=== PATIENT | female | born 2000 | race American Indian/Alaskan Native ===

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

== ENCOUNTER 2019-05-28 15:14 | Observation (INO) | payer MEDICAID ==
[2019-05-28] MEDS ORDERED: NIFEdipine 10 MG Cap PO ONE (15:44)
[2019-05-28] MEDS ORDERED: Lactated Ringers 1,000 ML IV ONE (15:55)
[2019-05-28] MEDS ORDERED: Acetaminophen 500 MG Tab PO ONE (16:11)
[2019-05-28] MEDS ORDERED: Lactated Ringers 1,000 ML IV SCH (16:45)
[2019-05-28] MEDS: Lactated Ringers 1,000 ML IV SCH ×2 (16:45→22:24)
[2019-05-28] MEDS ORDERED: Betamethasone Acetate/Betamethasone Sod Phosphate 30 MG/5 ML MDV IM ONE (16:46)
[2019-05-28] MEDS ORDERED: Ondansetron 4 MG/2 ML SDV IVPUSH PRN (16:46)
[2019-05-28 16:53] LABS: ANION GAP 15.3; CHLORIDE,CL 103 mmol/L (101-111); SODIUM,NA 135 mmol/L (135-145)
[2019-05-28] MEDS: guaiFENesin 600 MG Tab.ER PO SCH ×2 (18:28→20:52)
[2019-05-28] MEDS: NIFEdipine 10 MG Cap PO PRN ×4 (18:31→19:47)
[2019-05-28] MEDS: cefTRIAXone 2 GM in Sodium Chloride 0.9% 100 ML IV SCH (18:35)
[2019-05-28] MEDS: Azithromycin 500 MG in Sodium Chloride 0.9% 250 ML IV SCH (19:08)
[2019-05-28] MEDS: NIFEdipine 10 MG Cap PO SCH ×2 (20:54→23:54)
[2019-05-28] MEDS ORDERED: Ketorolac 30 MG/ML SDV IVPUSH ONE (21:25)
[2019-05-28] MEDS: Acetaminophen 325 MG Tab PO PRN (21:33)
[2019-05-28] MEDS: Cyclobenzaprine 10 MG Tab PO PRN (21:59)
[2019-05-28] MEDS ORDERED: Sodium Bicarbonate 50 MEQ in Dextrose 5% in Water 1,000 ML IV ONE ×2 (22:37)
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
[2019-05-28] MEDS ORDERED: Sodium Bicarbonate 8.4% 50 MEQ/50 ML SDV ONE (23:14)
--- NOTE | 2019-05-28 23:41 | PN ---
DATE: 05/28/2019 Laboratory called with increased lactic acid of 3.6 drawn at 10 p.m. The original lactic acid was 2.4 drawn around 6 p.m. At the time of patient's admission, her signs and symptoms were clinically consistent with what I felt was going to be influenza, therefore, she was not started on antibiotics right away, and once we received the lab reports back and the negative influenza swabs, I then decided that this was more of a community- acquired pneumonia, initiated Rocephin and Zithromax. The completion of both antibiotics being infused was not done until around 8 p.m. I am suspecting the increase in lactic acid is because the antibiotics have not had a sufficient amount of time to actually become effective. I did call and discuss the case with the hospitalist very briefly and reviewed that the patient does have a CO2 of only 20, and he recommended going ahead and giving her a dose of sodium bicarbonate at 3 amps in 1 L of D5W. Bicarb should also help the lactic acid and the longer time of the antibiotics having been infused. We will recheck a lactic acid in a few hours and recheck all of her other CBC and chemistries in the morning. [facility] /[id number] ALICIA
[2019-05-29] MEDS: NIFEdipine 10 MG Cap PO SCH ×2 (04:03→07:53)
[2019-05-29 07:09] LABS: ANION GAP 12.4; CHLORIDE,CL 103 mmol/L (101-111); SODIUM,NA 133 mmol/L (135-145)
[2019-05-29] MEDS: Acetaminophen 325 MG Tab PO PRN ×2 (07:53→21:53)
[2019-05-29] MEDS: Potassium Chloride 10 MEQ Tab.ER PO SCH ×2 (09:12→17:54)
[2019-05-29] MEDS: guaiFENesin 600 MG Tab.ER PO SCH ×3 (09:12→21:53)
[2019-05-29] MEDS: Lactated Ringers 1,000 ML IV SCH (09:13)
[2019-05-29] MEDS ORDERED: Albuterol/Ipratropium 3.0-0.5 MG/3 ML Neb Soln NEB PRN (09:24)
[2019-05-29] MEDS: Cyclobenzaprine 10 MG Tab PO PRN ×2 (09:55→21:53)
[2019-05-29] MEDS ORDERED: NIFEdipine 10 MG Cap PO SCH ×2 (12:00→16:00)
[2019-05-29] MEDS: Ferrous Sulfate 325 MG Tab PO SCH ×2 (12:09→17:54)
[2019-05-29] MEDS ORDERED: Lactated Ringers 1,000 ML IV SCH (12:15)
--- NOTE | 2019-05-29 12:51 | PN ---
DATE: 05/29/2019 SUBJECTIVE: Hospital day #2. The patient reports that she is starting to feel a little bit better. Continues to have difficulties with chest pain any time she takes a deep breath. She has been able to lie more flat with greater ease and reports that her nausea is better and she is able to tolerate a regular diet. Experiancing some lightheadedness and a little shortness of breath when she gets up to the bathroom. Uncertain how much of this is related to her pneumonia versus the low blood pressures caused by the nifedipine. contractions have stopped and she has not had any increased pelvic pressure. There is no vaginal bleeding or leakage of fluid. Continues to deny any symptoms of urinary tract infection. Mood has been stable and she continues to have fever with chills and rigors. Primary concern is the well- being of the baby at this time. The patient has been offered [facility] consultation, but feels that she is managing with what she is getting from [facility] at this time and her boyfriend has been here with her overnight for moral support as well and his questions have been addressed. PHYSICAL EXAMINATION: Vital Signs: Temperature is 97.9, pulse of 95, blood pressure 93/40, respiratory rate of 22, O2 saturations 97% on 2 L of oxygen. Prior to this, she was satting at 94% to 93% on room air. Heart: Regular without murmur. Lungs: She continues to have some diminished breath sounds. I am appreciating some wheezing when she is coughing, but not when she is breathing at rest. Continues to express painful behavior when taking a deep breath for examination. Abdomen: Soft and nontender. Positive bowel sounds. heart tones are tracing at 120 beats per minute with moderate qqqy-kv-iasn variability. [place] is not showing any contractions at this time. Extremities: No edema, erythema, tenderness or pain is noted. LABORATORY DATA: Initial lactic acid of 2.4, had gone up to 3.6 and stabilized there. This morning, it is down to 1.9. White blood cell count is stable at 28.5, continues to be at left shift. Her hemoglobin is down to 9.4. Expect most of this is dilutional because of IV fluid that she has been getting overnight. Chemistry panel: Sodium is 133, potassium 3.4, calcium 7.5. ALT down to 65, AST normal at 31, total protein 5.4, and albumin of 2.4, otherwise either within normal limits or unremarkable changes since yesterday. ASSESSMENT: 1. Right upper lobe pneumonia. 2. 30 and 0/7 weeks intrauterine based on 27 weeks ultrasound. 3. 3, para 2-0-0-2. 4. contractions, currently well controlled with nifedipine. 5. Urinary tract infection. 6. Homelessness. 7. Anemia of . 8. Hypokalemia. 9. Hypoalbuminemia due to protein malnutrition. 10.History of delivery of macrosomic female infant. 11.History of anxiety, depression. 12.Bacterial vaginosis. PLAN: At this time, try decreasing the nifedipine to every 8 hours and watch carefully for recurrence of contractions and increase or change therapy as necessary. Continue with IV Rocephin and Zithromax for management of her pneumonia. Recheck a CMP and CBC in the morning. Discontinue any rechecks of lactic acid since that is trending well. Oxygen supplementation is being provided as needed. We will also start some DuoNebs every 6 hours. Continue with Tylenol for fever control. Continue with Flexeril as needed for the back pain and the guaifenesin for cough. Obstetrics Nurse will discuss with her today whether she wants additional group social worker intervention at this time and due to the fact that she is already on 2 IV antibiotics, we will use a metronidazole gel for treatment of her bacterial vaginosis. Did let the patient know that she should also have her Tdap vaccination prior to discharge from the hospital. Her questions were answered and she was comfortable with the plan and she is aware that she is likely to stay in the hospital for an additional 2 to 3 days pending her clinical course. [facility] /[id number] ALICIA
[2019-05-29] MEDS: cefTRIAXone 2 GM in Sodium Chloride 0.9% 100 ML IV SCH (17:54)
[2019-05-29] MEDS: Azithromycin 500 MG in Sodium Chloride 0.9% 250 ML IV SCH (18:28)
[2019-05-29] MEDS ORDERED: Betamethasone Acetate/Betamethasone Sod Phosphate 30 MG/5 ML MDV IM ONE (18:30)
[2019-05-30 03:03] VITALS: BP 90/39; PULSE 103
[2019-05-30] MEDS ORDERED: Prenatal Multivitamin with Calcium/Folic Acid/Iron Tab PO SCH (08:00)
--- NOTE | 2019-05-30 11:16 | OBOUT ---
DATE: 05/28/2019 TIME: Approximately 1900 hours. INDICATION FOR NST: The patient admitted for pneumonia, complicated by contractions. REPORT: Baseline heart rate 150 beats per minute. Moderate znwf-eb-mejy variability. [place] shows contractions every 3 minutes. INTERPRETATION: Category 1, reassuring and reactive NST. [facility] /[id number]
--- NOTE | 2019-05-30 11:46 | OBOUT ---
DATE: 05/29/2019 TIME: Approximately 1430. INDICATION FOR NST: The patient admitted with pneumonia, complicated by contractions. REPORT: Baseline heart rate 130 beats per minute at baseline. Moderate eidz-wa-hdco variability and accelerations noted. [place] shows no contractions. INTERPRETATION: Category 1, reassuring and reactive NST. [facility] /[id number]
--- NOTE | 2019-05-30 11:49 | OBOUT ---
DATE: 05/28/2019 TIME: Approximately 3:30 in the afternoon. INDICATION FOR NST: labor contractions in a patient with a complicated pneumonia. REPORT: Baseline heart rate 150 beats per minute. Moderate awgb-ec-npbn variability. Accelerations noted. [place] shows contractions every 2 to 4 minutes. INTERPRETATION: Category 1, reassuring and reactive NST. [facility] /[id number]
--- NOTE | 2019-05-30 12:02 | OBOUT ---
DATE: 05/29/2019 TIME: Approximately 4 a.m. INDICATION FOR NST: The patient admitted with pneumonia, complicated by contractions. REPORT: Baseline heart rate 120 beats per minute at baseline. Moderate beat to beat variability. Accelerations noted. [place] shows no contractions. INTERPRETATION: Category 1, reassuring and reactive NST. [facility] /[id number] MTDD
--- NOTE | 2019-05-30 13:18 | OBOUT ---
DATE: 05/28/2019 TIME: Approximately 2300 hours. INDICATION FOR NST: The patient admitted with a pneumonia, complicated by contractions. REPORT: Baseline heart rate 140 beats per minute baseline. moderate beat to beat variability. Accelerations noted. [place] shows no contractions. INTERPRETATION: Category 1, reassuring and reactive NST. [facility] /[id number] MTDD
--- NOTE | 2019-05-30 13:21 | OBOUT ---
DATE: 05/29/2019 TIME: Approximately 1730. INDICATION FOR NST: The patient admitted with pneumonia, complicated by contractions. REPORT: Baseline heart rate 135 beats per minute. Moderate hivi-tv-ptar variability. Accelerations noted. [place] shows no contractions. INTERPRETATION: Category 1, reassuring and reactive NST. [facility] /[id number]
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
--- NOTE | 2019-05-30 14:57 | OBOUT ---
DATE: 05/28/2019 TIME: Approximately 1700 hours. INDICATION FOR NST: The patient admitted for pneumonia and has concurrent contractions. REPORT: Baseline heart rate 150 beats per minute. Moderate oyek-nj-kgtl variability. Accelerations noted. [place] shows contractions every 2 to 3 minutes. INTERPRETATION: Category 1 reassuring and reactive NST. [facility] /[id number]
== END 2019-05-30 01:20 | disposition left against medical advice (07) ==
LOC: DL.OBCHECK 15:14 → DL.MS 16:46 → UNDOADMOB 16:58 → DL.MS 16:58
PROVIDERS: ADMIT Family Medicine; ATTEND Family Medicine
DX: O99.513 Diseases of the respiratory system complicating pregnancy, third trimester (principal); J18.1 Lobar pneumonia, unspecified organism; O47.03 False labor before 37 completed weeks of gestation, third trimester; O23.593 Infection of other part of genital tract in pregnancy, third trimester; N76.0 Acute vaginitis; B96.89 Other specified bacterial agents as the cause of diseases classified elsewhere; O23.43 Unspecified infection of urinary tract in pregnancy, third trimester; O99.013 Anemia complicating pregnancy, third trimester; D64.9 Anemia, unspecified; O99.830 Other infection carrier state complicating pregnancy; B18.2 Chronic viral hepatitis C; O99.343 Other mental disorders complicating pregnancy, third trimester; F32.9 Major depressive disorder, single episode, unspecified; F41.9 Anxiety disorder, unspecified; O99.283 Endocrine, nutritional and metabolic diseases complicating pregnancy, third trimester; E87.6 Hypokalemia; O25.13 Malnutrition in pregnancy, third trimester; Z59.0 Homelessness; Z3A.29 29 weeks gestation of pregnancy; Z86.19 Personal history of other infectious and parasitic diseases; Z87.59 Personal history of other complications of pregnancy, childbirth and the puerperium; Z79.899 Other long term (current) drug therapy
CPT/HCPCS: 36415; 71045; 76817; 80053; 80305-QW; 81001; 82731; 83605; 83690; 84443; 85025; 87040; 87081; 87210; 87804; 93005; 94640; 96361; 96365; 96366; 96367; 96372; 96375; 96376; A9270-GY; G0378; J0456; J0696; J0702; J1885; J7050; J7060; J7120; J7620-GY

== ENCOUNTER 2019-07-14 20:56 | Inpatient (IN) | payer MEDICAID ==
[2019-07-14] MEDS ORDERED: Penicillin G Potassium 5,000,000 Unit Vial ONE (21:07)
[2019-07-14] MEDS ORDERED: Penicillin G Potassium 5 MILLUNITS in Sodium Chloride 0.9% 100 ML IV ONE (21:16)
[2019-07-14] MEDS: Lactated Ringers 1,000 ML IV SCH (21:42)
[2019-07-14] MEDS ORDERED: Betamethasone Acetate/Betamethasone Sod Phosphate 30 MG/5 ML MDV IM ONE (22:28)
[2019-07-14 22:53] LABS: ANION GAP 11.6; CHLORIDE,CL 106 mmol/L (101-111); SODIUM,NA 133 mmol/L (135-145)
[2019-07-14] MEDS ORDERED: Acetaminophen 325 MG Tab PO PRN (22:57)
[2019-07-14] MEDS ORDERED: Penicillin G Potassium 3 MILLUNITS in Sodium Chloride 0.9% 100 ML IV SCH (23:00)
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
[2019-07-15] MEDS: Penicillin G Potassium 3 MILLUNITS in Sodium Chloride 0.9% 100 ML IV SCH ×6 (00:59→23:11)
[2019-07-15] MEDS: Ferrous Sulfate 325 MG Tab PO SCH (09:05)
[2019-07-15] MEDS: Prenatal Multivitamin with Calcium/Folic Acid/Iron Tab PO SCH (09:13)
[2019-07-15] MEDS: Lactated Ringers 1,000 ML IV SCH ×2 (09:40→15:45)
--- NOTE | 2019-07-15 11:23 | PCM.PNLD ---
Labor Progress Note - VS & Meds Vital Signs: Last Vital Signs Temp 97.3 F 07/15/19 09:00 Pulse 56 L 07/15/19 09:00 Resp 14 07/15/19 08:30 BP 124/60 07/15/19 09:00 Pulse Ox Active Medications: Current Medications Acetaminophen (Tylenol) 650 mg PO Q6H PRN PRN Reason: Pain Ferrous Sulfate (Ferrous Sulfate) 325 mg PO WITHBREAKFAST [facility] Last Admin: 07/15/19 09:05 Dose: 325 mg Lactated Ringer's (Ringers, Lactated) 1,000 mls @ 125 mls/hr IV ASDIRECTED [facility] Last Admin: 07/15/19 09:40 Dose: 125 mls/hr Penicillin G Potassium 3 (millunits/ Sodium Chloride) 100 mls @ 200 mls/hr IV Q4H [facility] Last Admin: 07/15/19 09:03 Dose: 200 mls/hr Prenat Multivit/[place]/Iron/Folic Ac ( Plus Iron) 1 each PO BRK [facility] Last Admin: 07/15/19 09:13 Dose: 1 each Discontinued Medications Penicillin G Potassium 5 (millunits/ Sodium Chloride) 100 mls @ 200 mls/hr IV ONETIME ONE Stop: 07/14/19 21:45 Last Admin: 07/14/19 21:42 Dose: 200 mls/hr Penicillin G Potassium 3 (millunits/ Sodium Chloride) 100 mls @ 200 mls/hr IV Q4H [facility] Last Admin: 07/15/19 02:53 Dose: Not Given Penicillin G Potassium (Pfizerpen) Confirm Administered Dose 5 millunits .ROUTE .STK-MED ONE Stop: 07/14/19 21:08 Last Admin: 07/14/19 21:18 Dose: Not Given - Uterine Contractions Uterine Monitoring Mode: External [place] Contraction Frequency (min): 5-9 Contraction Duration (sec): 60-90 Contraction Intensity: Moderate Uterine Resting Tone: Soft - Monitoring Monitor Mode: External Ultrasound Heart Rate (FHR) Variability: Moderate (6-25 bmp) Accelerations: Present, 15x15 Decelerations: None Strip Review: Category I - Vaginal Exam Dilation (cm): 4.5 Effacement (Percent): 80 Station: -2 Cervical Position: Midposition Sterile Vaginal Exam Performed By: Lance Padilla Vaginal Exam Comment: 4-5 cm/80%/-2 Buldging bag of cota low in the vagina. AROM- Clear fluid. - Labor Progress (Free Text) Labor Progress: Patient started picking up on the contractions. Nonausea, vomiting, or diarrhea. No bleeding or leakage of fluids. + pressure. Since she ismaking cervical change and is almost 5 cm, has had 3 doses of Penicillin G IV and previous steroids given Artificial rupture of membranes occurred with clear fluid noted. Discussed case with Dr. Hood and she is aware of patient and imminent delivery status. All questions answered for the patient.
[2019-07-15] MEDS ORDERED: Methylergonovine 0.2 MG/1 ML Amp IM PRN (13:22)
[2019-07-15] MEDS ORDERED: Misoprostol 400 MCG (4 X 100 MCG TAB) RECTAL PRN ×2 (13:23→14:24)
[2019-07-15] MEDS ORDERED: Carboprost Tromethamine 250 MCG/1 ML Amp IM PRN ×2 (13:24→14:24)
[2019-07-15] MEDS ORDERED: Oxytocin/Normal Saline 30 UNIT/500 ML BAG IV SCH (13:30)
[2019-07-15] MEDS ORDERED: Acetaminophen 325 MG Tab PO PRN (14:24)
[2019-07-15] MEDS ORDERED: Simethicone 80 MG Tab.Chew PO PRN (14:24)
[2019-07-15] MEDS ORDERED: Zolpidem 5 MG Tab PO PRN (14:24)
[2019-07-15] MEDS ORDERED: Benzocaine/Menthol 20%-0.5% Spray 56 GM Canister TOP PRN (14:24)
[2019-07-15] MEDS ORDERED: Oxytocin 10 Units/1 ML SDV IM PRN (14:24)
[2019-07-15] MEDS ORDERED: Tranexamic Acid 1,000 MG in Sodium Chloride 0.9% 100 ML IV PRN (14:24)
[2019-07-15] MEDS ORDERED: Sodium Chloride 0.9% 10 ML Syringe FLUSH PRN (14:24)
[2019-07-15] MEDS: Ondansetron 4 MG/2 ML SDV IVPUSH PRN ×2 (15:40→21:40)
--- NOTE | 2019-07-15 15:49 | PCM.PNLD ---
Labor Progress Note - VS & Meds Vital Signs: Last Vital Signs Temp 97.3 F 07/15/19 09:00 Pulse 56 L 07/15/19 09:00 Resp 14 07/15/19 08:30 BP 124/60 07/15/19 09:00 Pulse Ox Active Medications: Current Medications Acetaminophen (Tylenol) 650 mg PO Q6H PRN PRN Reason: mild pain or fever Benzocaine/Menthol (Dermoplast Pain Relief [place]) 0 gm TOP Q4H PRN PRN Reason: Perineal comfort measures Carboprost Tromethamine (Hemabate Ds) 250 mcg IM Q2HR PRN PRN Reason: Bleeding Carboprost Tromethamine (Hemabate Ds) 250 mcg IM ASDIRECTED PRN PRN Reason: Excessive vaginal bleeding Docusate Sodium (Colace) 100 mg PO BID PRN PRN Reason: Constipation Ferrous Sulfate (Ferrous Sulfate) 325 mg PO WITHBREAKFAST [facility] Last Admin: 07/15/19 09:05 Dose: 325 mg Lactated Ringer's (Ringers, Lactated) 1,000 mls @ 125 mls/hr IV ASDIRECTED [facility] Last Admin: 07/15/19 09:40 Dose: 125 mls/hr Penicillin G Potassium 3 (millunits/ Sodium Chloride) 100 mls @ 200 mls/hr IV Q4H [facility] Last Admin: 07/15/19 13:05 Dose: 200 mls/hr Oxytocin/Sodium Chloride (Pitocin In Ns 30 Unit/500 Ml) 30 unit in 500 mls @ 2 mls/hr IV TITRATE [facility]; Protocol Last Admin: 07/15/19 14:50 Dose: 2 munits/min, 2 mls/hr Tranexamic Acid 1,000 mg/ (Sodium Chloride) 110 mls @ 660 mls/hr IV ONETIME PRN PRN Reason: Bleeding Ibuprofen (Motrin) 800 mg PO Q8H PRN PRN Reason: Mild Pain or Fever Methylergonovine Maleate (Methergine) 0.2 mg IM Q4H PRN PRN Reason: Bleeding Misoprostol (Cytotec) 800 mcg RECTAL ONETIME PRN PRN Reason: Bleeding Misoprostol (Cytotec) 800 mcg RECTAL ONETIME PRN PRN Reason: Hemorrhage Ondansetron HCl (Zofran) 4 mg IVPUSH Q4H PRN PRN Reason: Nausea/Vomiting Oxytocin (Pitocin) 10 unit IM ONETIME PRN PRN Reason: Bleeding Prenat Multivit/[place]/Iron/Folic Ac ( Plus Iron) 1 each PO BRK [facility] Last Admin: 07/15/19 09:13 Dose: 1 each Prenat Multivit/[place]/Iron/Folic Ac ( Plus Iron) 1 each PO DAILY [facility] Simethicone (Simethicone) 80 mg PO Q4H PRN PRN Reason: Gas Sodium Chloride (Saline Flush) 10 ml FLUSH ASDIRECTED PRN PRN Reason: Keep Vein Open Zolpidem Tartrate (Ambien) 5 mg PO BEDTIME PRN PRN Reason: Insomnia Discontinued Medications Acetaminophen (Tylenol) 650 mg PO Q6H PRN PRN Reason: Pain Penicillin G Potassium 5 (millunits/ Sodium Chloride) 100 mls @ 200 mls/hr IV ONETIME ONE Stop: 07/14/19 21:45 Last Admin: 07/14/19 21:42 Dose: 200 mls/hr Penicillin G Potassium 3 (millunits/ Sodium Chloride) 100 mls @ 200 mls/hr IV Q4H [facility] Last Admin: 07/15/19 02:53 Dose: Not Given Penicillin G Potassium (Pfizerpen) Confirm Administered Dose 5 millunits .ROUTE .STK-MED ONE Stop: 07/14/19 21:08 Last Admin: 07/14/19 21:18 Dose: Not Given - Uterine Contractions Uterine Monitoring Mode: External [place] Contraction Frequency (min): 5 Contraction Duration (sec): 60-90 Contraction Intensity: Moderate Uterine Resting Tone: Soft - Monitoring Monitor Mode: External Ultrasound Heart Rate (FHR) Variability: Moderate (6-25 bmp) Accelerations: Present, 15x15 Decelerations: Variable, Intermittent (<50% x 20 min) Strip Review: Category I - Vaginal Exam Dilation (cm): 7.0 Effacement (Percent): 90 Station: 0 Cervical Position: Midposition Sterile Vaginal Exam Performed By: Lance Padilla - Labor Progress (Free Text) Labor Progress: Patient using Nitrous Oxide would like a Intrathecal for pain control. Pitocin at 2 mu/min for augmentation.
[2019-07-15] MEDS ORDERED: Sodium Bicarbonate 4.2% 2.5 MEQ/5 ML SDV ONE (15:51)
[2019-07-15] MEDS ORDERED: fentaNYL 100 MCG/2 ML SDV ONE (15:51)
--- NOTE | 2019-07-15 16:15 | PCM.SN ---
- Free Text/Narrative Note: Intrathecal. Sitting position, sterile prep and drape. 1% lidocaine w bicarb for skinwheal to L2 L3 interspace, introducer, 24 ga pencan x 1. Pos CSF, neg heme, neg parasthesia. 20 mcg pf sufenta, 30 mcg pf fentanyl, 0.4 ml pf ns and 6 mg of 0.75 % pf bupivacaine injected after CSf aspiration. Pt to L lateral position. Procedure time 1550 to 1420
--- NOTE | 2019-07-15 16:37 | PCM.DEL ---
L & D Note - General Info Date of Service: 07/15/19 (36 5/7 weeks gestation) Mother's Due Date: 08/07/19 - Delivery Note Labor: Augmented by Oxytocin Delivery Outcome: Livebirth Delivery Method: Spontaneous Vaginal Delivery-Single Infant Delivery Mode: Spontaneous Presentation: Vertex Nuchal Cord: Present (tight around neck X1), Reduced Anesthesia Type: Intrathecal, Nitrous Oxide Amniotic Fluid Description: Clear Episiotomy Type: None Laceration: None Placenta: Intact, Spontaneous Cord: 3 Vessels Estimated Blood Loss: 300 Resuscitation Needed: No [place]: Stimulated, [place] Used Provider: Lance Padilla Delivery Comments (Free Text/Narrative):: , OA viable female infant over intact perineum Cord 3 vessel tightly around neck X 1 Reduced without difficulty after delivery of infant. Placenta delivered by simple expression intact. Labia, vagina and cervix inspected and intact. Mother and in good condition. Weight: 7 lbs, Length- 18 1/2 inches long, 's- 8 @ 1 minute and 9 @ 5 minutes EBL-300 mL - General Info Date of Service: 07/15/19 (36 5/7 weeks gestation) Functional Status: Reports: Pain Controlled - Review of Systems General: Reports: No Symptoms HEENT: Reports: No Symptoms Pulmonary: Reports: No Symptoms Cardiovascular: Reports: No Symptoms Gastrointestinal: Reports: No Symptoms Genitourinary: Reports: No Symptoms Musculoskeletal: Reports: No Symptoms Skin: Reports: No Symptoms Neurological: Reports: No Symptoms Psychiatric: Reports: No Symptoms - Patient Data Vitals - Most Recent: Last Vital Signs Temp 97.3 F 07/15/19 09:00 Pulse 56 L 07/15/19 09:00 Resp 14 07/15/19 08:30 BP 124/60 07/15/19 09:00 Pulse Ox Weight - Most Recent: 248 lb I&O - Last 24 Hours: Intake & Output 07/15/19 07/15/19 07/15/19 06:59 14:59 22:59 Intake Total 286 1100 Balance 286 1100 Lab Results Last 24 Hours: Laboratory Results - last 24 hr 07/14/19 07/14/19 07/14/19 Range/Units 20:58 20:58 21:08 WBC 8.8 (5.0-10.0) 10^3/uL RBC 3.79 L (4.2-5.4) 10^6/uL Hgb 11.4 L D (12.0-16.0) g/dL Hct 34.0 L (37.0-47.0) % MCV 89.7 (80-100) fL MCH 30.1 (27.0-34.0) pg MCHC 33.5 (33.0-35.0) g/dL Plt Count 206 (150-450) 10^3/uL Sodium 133 L (135-145) mmol/L Potassium 3.6 (3.6-5.0) mmol/L Chloride 106 (101-111) mmol/L Carbon Dioxide 19.0 L (21.0-31.0) mmol/L Anion Gap 11.6 BUN 14 (7-18) mg/dL Creatinine 0.7 (0.6-1.3) mg/dL Est Cr Clr Drug Dosing 132.86 mL/min Estimated GFR (MDRD) > 60 BUN/Creatinine Ratio 20.00 Glucose 79 (74-105) mg/dL Calcium 8.3 L (8.4-10.2) mg/dl Total Bilirubin 0.5 (0.2-1.0) mg/dL AST 19 (10-42) IU/L ALT 21 (10-60) IU/L Alkaline Phosphatase 143 H (42-121) IU/L Total Protein 6.5 L (6.7-8.2) g/dl Albumin 3.0 L (3.2-5.5) g/dl Globulin 3.5 Albumin/Globulin Ratio 0.86 Urine Color (YELLOW) Urine Appearance (CLEAR) Urine pH (5.0-9.0) Ur Specific [place] (1.005-1.030) Urine Protein (NEGATIVE) Urine Glucose (UA) (NEGATIVE) Urine Ketones (NEGATIVE) Urine Occult Blood (NEGATIVE) Urine Nitrite (NEGATIVE) Urine Bilirubin (NEGATIVE) Urine Urobilinogen (0.2-1.0) mg/dL Ur Leukocyte Esterase (NEGATIVE) Urine RBC /HPF Urine WBC (0-5/HPF) /HPF Ur Epithelial Cells (NOT SEEN) /HPF Urine Bacteria (0-FEW/HPF) /HPF Urine Mucus (NOT SEEN) /LPF Membrane Rupture Negative (NEG) Urine Opiates Screen (NEGATIVE) Ur Oxycodone Screen (NEGATIVE) Urine Methadone Screen (NEGATIVE) Ur Barbiturates Screen (NEGATIVE) U Tricyclic Antidepress (NEGATIVE) Ur Phencyclidine Scrn (NEGATIVE) Ur Amphetamine Screen (NEGATIVE) U Methamphetamines Scrn (NEGATIVE) Urine MDMA Screen (NEGATIVE) U Benzodiazepines Scrn (NEGATIVE) Urine Cocaine Screen (NEGATIVE) U Marijuana (THC) Screen (NEGATIVE) 07/14/19 07/14/19 Range/Units 22:41 22:41 WBC (5.0-10.0) 10^3/uL RBC (4.2-5.4) 10^6/uL Hgb (12.0-16.0) g/dL Hct (37.0-47.0) % MCV (80-100) fL MCH (27.0-34.0) pg MCHC (33.0-35.0) g/dL Plt Count (150-450) 10^3/uL Sodium (135-145) mmol/L Potassium (3.6-5.0) mmol/L Chloride (101-111) mmol/L Carbon Dioxide (21.0-31.0) mmol/L Anion Gap BUN (7-18) mg/dL Creatinine (0.6-1.3) mg/dL Est Cr Clr Drug Dosing mL/min Estimated GFR (MDRD) BUN/Creatinine Ratio Glucose (74-105) mg/dL Calcium (8.4-10.2) mg/dl Total Bilirubin (0.2-1.0) mg/dL AST (10-42) IU/L ALT (10-60) IU/L Alkaline Phosphatase (42-121) IU/L Total Protein (6.7-8.2) g/dl Albumin (3.2-5.5) g/dl Globulin Albumin/Globulin Ratio Urine Color Yellow (YELLOW) Urine Appearance Clear (CLEAR) Urine pH 7.0 (5.0-9.0) Ur Specific [place] 1.020 (1.005-1.030) Urine Protein Negative (NEGATIVE) Urine Glucose (UA) Negative (NEGATIVE) Urine Ketones Negative (NEGATIVE) Urine Occult Blood Negative (NEGATIVE) Urine Nitrite Negative (NEGATIVE) Urine Bilirubin Negative (NEGATIVE) Urine Urobilinogen 0.2 (0.2-1.0) mg/dL Ur Leukocyte Esterase Negative (NEGATIVE) Urine RBC 0-5 /HPF Urine WBC 0-5 (0-5/HPF) /HPF Ur Epithelial Cells Few (NOT SEEN) /HPF Urine Bacteria Few (0-FEW/HPF) /HPF Urine Mucus Few H (NOT SEEN) /LPF Membrane Rupture (NEG) Urine Opiates Screen Negative (NEGATIVE) Ur Oxycodone Screen Negative (NEGATIVE) Urine Methadone Screen Negative (NEGATIVE) Ur Barbiturates Screen Negative (NEGATIVE) U Tricyclic Antidepress Negative (NEGATIVE) Ur Phencyclidine Scrn Negative (NEGATIVE) Ur Amphetamine Screen Negative (NEGATIVE) U Methamphetamines Scrn Negative (NEGATIVE) Urine MDMA Screen Negative (NEGATIVE) U Benzodiazepines Scrn Negative (NEGATIVE) Urine Cocaine Screen Negative (NEGATIVE) U Marijuana (THC) Screen Negative (NEGATIVE) Med Orders - Current: Current Medications Acetaminophen (Tylenol) 650 mg PO Q6H PRN PRN Reason: mild pain or fever Benzocaine/Menthol (Dermoplast Pain Relief [place]) 0 gm TOP Q4H PRN PRN Reason: Perineal comfort measures Carboprost Tromethamine (Hemabate Ds) 250 mcg IM Q2HR PRN PRN Reason: Bleeding Carboprost Tromethamine (Hemabate Ds) 250 mcg IM ASDIRECTED PRN PRN Reason: Excessive vaginal bleeding Docusate Sodium (Colace) 100 mg PO BID PRN PRN Reason: Constipation Ferrous Sulfate (Ferrous Sulfate) 325 mg PO WITHBREAKFAST [facility] Last Admin: 07/15/19 09:05 Dose: 325 mg Lactated Ringer's (Ringers, Lactated) 1,000 mls @ 125 mls/hr IV ASDIRECTED [facility] Last Admin: 07/15/19 09:40 Dose: 125 mls/hr Penicillin G Potassium 3 (millunits/ Sodium Chloride) 100 mls @ 200 mls/hr IV Q4H [facility] Last Admin: 07/15/19 13:05 Dose: 200 mls/hr Oxytocin/Sodium Chloride (Pitocin In Ns 30 Unit/500 Ml) 30 unit in 500 mls @ 2 mls/hr IV TITRATE [facility]; Protocol Last Admin: 07/15/19 14:50 Dose: 2 munits/min, 2 mls/hr Tranexamic Acid 1,000 mg/ (Sodium Chloride) 110 mls @ 660 mls/hr IV ONETIME PRN PRN Reason: Bleeding Ibuprofen (Motrin) 800 mg PO Q8H PRN PRN Reason: Mild Pain or Fever Methylergonovine Maleate (Methergine) 0.2 mg IM Q4H PRN PRN Reason: Bleeding Misoprostol (Cytotec) 800 mcg RECTAL ONETIME PRN PRN Reason: Bleeding Misoprostol (Cytotec) 800 mcg RECTAL ONETIME PRN PRN Reason: Hemorrhage Ondansetron HCl (Zofran) 4 mg IVPUSH Q4H PRN PRN Reason: Nausea/Vomiting Oxytocin (Pitocin) 10 unit IM ONETIME PRN PRN Reason: Bleeding Prenat Multivit/[place]/Iron/Folic Ac ( Plus Iron) 1 each PO BRK [facility] Last Admin: 07/15/19 09:13 Dose: 1 each Prenat Multivit/[place]/Iron/Folic Ac ( Plus Iron) 1 each PO DAILY [facility] Simethicone (Simethicone) 80 mg PO Q4H PRN PRN Reason: Gas Sodium Chloride (Saline Flush) 10 ml FLUSH ASDIRECTED PRN PRN Reason: Keep Vein Open Zolpidem Tartrate (Ambien) 5 mg PO BEDTIME PRN PRN Reason: Insomnia Discontinued Medications Acetaminophen (Tylenol) 650 mg PO Q6H PRN PRN Reason: Pain Fentanyl (Sublimaze) Confirm Administered Dose 100 mcg .ROUTE .STK-MED ONE Stop: 07/15/19 15:52 Last Admin: 07/15/19 15:59 Dose: Not Given Penicillin G Potassium 5 (millunits/ Sodium Chloride) 100 mls @ 200 mls/hr IV ONETIME ONE Stop: 07/14/19 21:45 Last Admin: 07/14/19 21:42 Dose: 200 mls/hr Penicillin G Potassium 3 (millunits/ Sodium Chloride) 100 mls @ 200 mls/hr IV Q4H [facility] Last Admin: 07/15/19 02:53 Dose: Not Given Penicillin G Potassium (Pfizerpen) Confirm Administered Dose 5 millunits .ROUTE .STK-MED ONE Stop: 07/14/19 21:08 Last Admin: 07/14/19 21:18 Dose: Not Given Sodium Bicarbonate (Sodium Bicarbonate 4.2%) Confirm Administered Dose 2.5 meq .ROUTE .STK-MED ONE Stop: 07/15/19 15:52 Last Admin: 07/15/19 15:59 Dose: Not Given Sufentanil Citrate (Sufenta) Confirm Administered Dose 50 mcg .ROUTE .STK-MED ONE Stop: 07/15/19 15:52 Last Admin: 07/15/19 16:00 Dose: Not Given - Exam General: Alert, Oriented, Cooperative, No Acute Distress HEENT: Pupils Equal, Pupils Reactive, Mucous Membr. Moist/[place] Neck: Supple Lungs: Clear to Auscultation, Normal Respiratory Effort Cardiovascular: Regular Rate, Regular Rhythm, No Murmurs Extremities: Normal Inspection, Non-Tender, No Pedal Edema Skin: Warm, Dry, Intact Neurological: No New Focal Deficit Psy/Mental Status: Alert, Normal Affect, Normal Mood - Problem List Review Problem List Initiated/Reviewed/Updated: Yes - My Orders Last 24 Hours: My Active Orders 07/14/19 21:08 CULTURE GROUP B STREP [RM] Routine 07/14/19 21:30 Lactated Ringers [Ringers, Lactated] 1,000 ml IV ASDIRECTED 07/14/19 22:18 OB Check [OM.PC] Click To Edit 07/15/19 01:00 Penicillin G Potassium [Pfizerpen] 3 millunits Sodium Chloride 0.9% [Normal Saline] 100 ml IV Q4H 07/15/19 08:00 Ferrous Sulfate 325 mg PO WITHBREAKFAST Vit with Ca/FA/Iron [ Plus Iron] 1 each PO BRK 07/15/19 13:22 Methylergonovine [Methergine] 0.2 mg IM Q4H PRN 07/15/19 13:23 miSOPROStoL [Cytotec] 800 mcg RECTAL ONETIME PRN 07/15/19 13:24 Carboprost Tromethamine [Hemabate DS] 250 mcg IM Q2HR PRN 07/15/19 13:30 Oxytocin/Normal Saline [Pitocin in NS 30 UNIT/500 ML] 30 unit in 500 ml IV TITRATE 07/15/19 14:24 Patient Status [ADT] Routine Notify Provider Vital Signs OB [RC] ASDIRECTED Up ad [place] [RC] ASDIRECTED Acetaminophen [Tylenol] 650 mg PO Q6H PRN Benzocaine/Menthol [Dermoplast Pain Relief [place]] See Dose Instructions TOP Q4H PRN Carboprost Tromethamine [Hemabate DS] 250 mcg IM ASDIRECTED PRN Docusate Sodium [Colace] 100 mg PO BID PRN Ibuprofen [Motrin] 800 mg PO Q8H PRN Oxytocin [Pitocin] 10 unit IM ONETIME PRN Simethicone 80 mg PO Q4H PRN Sodium Chloride 0.9% [Saline Flush] 10 ml FLUSH ASDIRECTED PRN Tranexamic Acid [Cyklokapron] 1,000 mg Sodium Chloride 0.9% [Normal Saline] 100 ml IV ONETIME Zolpidem [Ambien] 5 mg PO BEDTIME PRN miSOPROStoL [Cytotec] 800 mcg RECTAL ONETIME PRN Assess Lochia [WOMSER] Per Unit Routine Assess Uterine Involution [WOMSER] Per Unit Routine Breast Pump [WOMSER] Per Unit Routine Ice Therapy [OM.PC] Per Unit Routine Perineal Care [OM.PC] Per Unit Routine Saline Lock Insert [OM.PC] Urgent Sitz Bath [OM.PC] Per Unit Routine Resuscitation Status Routine 07/15/19 14:26 Vital Signs [RC] 07/15/19 15:34 Ondansetron [Zofran] 4 mg IVPUSH Q4H PRN 07/15/19 15:43 Nitrous Oxide Delivery [RC] ASDIRECTED 07/15/19 Breakfast Regular Diet [DIET] Regular Diet [DIET] 07/15/19 Dinner Regular Diet [DIET] 07/15/19 Lunch Regular Diet [DIET] 07/16/19 05:11 CBC WITH AUTO DIFF [HEME] AM 07/16/19 09:00 Vit with Ca/FA/Iron [ Plus Iron] 1 each PO DAILY
[2019-07-15] MEDS: Ibuprofen 800 MG Tab PO PRN (23:56)
[2019-07-16] MEDS: Penicillin G Potassium 3 MILLUNITS in Sodium Chloride 0.9% 100 ML IV SCH (05:15)
[2019-07-16] MEDS: Ibuprofen 800 MG Tab PO PRN ×2 (08:03→20:27)
[2019-07-16] MEDS: Ferrous Sulfate 325 MG Tab PO SCH (08:05)
[2019-07-16] MEDS: Prenatal Multivitamin with Calcium/Folic Acid/Iron Tab PO SCH ×2 (08:05→10:44)
[2019-07-16] MEDS: Docusate Sodium 100 MG Cap PO PRN ×2 (10:43→20:27)
--- NOTE | 2019-07-16 11:36 | PCM.PNPP ---
- General Info Date of Service: 07/16/19 (PPD # 1 S/P ) Functional Status: Reports: Pain Controlled, Tolerating Diet, Ambulating, Urinating - Review of Systems General: Reports: No Symptoms HEENT: Reports: No Symptoms Pulmonary: Reports: No Symptoms Cardiovascular: Reports: No Symptoms Gastrointestinal: Reports: No Symptoms Genitourinary: Reports: No Symptoms Musculoskeletal: Reports: No Symptoms Skin: Reports: No Symptoms Neurological: Reports: No Symptoms Psychiatric: Reports: No Symptoms - General Info Date of Service: 07/16/19 (PPD # 1 S/P ) - Patient Data Vital Signs - Most Recent: Last Vital Signs Temp 98.1 F 07/16/19 08:00 Pulse 56 L 07/16/19 08:00 Resp 16 07/16/19 08:00 BP 106/61 07/16/19 08:00 Pulse Ox 98 07/16/19 05:00 Weight - Most Recent: 248 lb I&O - Last 24 Hours: Intake & Output 07/15/19 07/16/19 07/16/19 22:59 06:59 14:59 Intake Total 3600 1000 Output Total 900 1000 Balance 2700 0 Lab Results - Last 24 Hours: Laboratory Results - last 24 hr 07/16/19 Range/Units 06:01 WBC 9.0 (5.0-10.0) 10^3/uL RBC 3.61 L (4.2-5.4) 10^6/uL Hgb 10.9 L (12.0-16.0) g/dL Hct 32.6 L (37.0-47.0) % MCV 90.3 (80-100) fL MCH 30.2 (27.0-34.0) pg MCHC 33.4 (33.0-35.0) g/dL Plt Count 181 (150-450) 10^3/uL Neut % (Auto) 60.9 (42.2-75.2) % Lymph % (Auto) 31.6 (20.5-50.1) % [place] % (Auto) 6.3 (2-8) % Eos % (Auto) 1.0 (1.0-3.0) % Baso % (Auto) 0.2 (0.0-1.0) % Med Orders - Current: Current Medications Acetaminophen (Tylenol) 650 mg PO Q6H PRN PRN Reason: mild pain or fever Benzocaine/Menthol (Dermoplast Pain Relief [place]) 0 gm TOP Q4H PRN PRN Reason: Perineal comfort measures Carboprost Tromethamine (Hemabate Ds) 250 mcg IM Q2HR PRN PRN Reason: Bleeding Carboprost Tromethamine (Hemabate Ds) 250 mcg IM ASDIRECTED PRN PRN Reason: Excessive vaginal bleeding Docusate Sodium (Colace) 100 mg PO BID PRN PRN Reason: Constipation Last Admin: 07/16/19 10:43 Dose: 100 mg Ferrous Sulfate (Ferrous Sulfate) 325 mg PO WITHBREAKFAST [facility] Last Admin: 07/16/19 08:05 Dose: 325 mg Lactated Ringer's (Ringers, Lactated) 1,000 mls @ 125 mls/hr IV ASDIRECTED BRIJESH Last Infusion: 07/15/19 16:30 Dose: 0 mls/hr Oxytocin/Sodium Chloride (Pitocin In Ns 30 Unit/500 Ml) 30 unit in 500 mls @ 2 mls/hr IV TITRATE BRIJESH; Protocol Last Titration: 07/15/19 18:15 Dose: 50 munits/min, 50 mls/hr Tranexamic Acid 1,000 mg/ (Sodium Chloride) 110 mls @ 660 mls/hr IV ONETIME PRN PRN Reason: Bleeding Ibuprofen (Motrin) 800 mg PO Q8H PRN PRN Reason: Mild Pain or Fever Last Admin: 07/16/19 08:03 Dose: 800 mg Methylergonovine Maleate (Methergine) 0.2 mg IM Q4H PRN PRN Reason: Bleeding Misoprostol (Cytotec) 800 mcg RECTAL ONETIME PRN PRN Reason: Bleeding Misoprostol (Cytotec) 800 mcg RECTAL ONETIME PRN PRN Reason: Hemorrhage Ondansetron HCl (Zofran) 4 mg IVPUSH Q4H PRN PRN Reason: Nausea/Vomiting Last Admin: 07/15/19 21:40 Dose: 4 mg Oxytocin (Pitocin) 10 unit IM ONETIME PRN PRN Reason: Bleeding Prenat Multivit/[place]/Iron/Folic Ac ( Plus Iron) 1 each PO BRK [facility] Last Admin: 07/16/19 08:05 Dose: 1 each Prenat Multivit/[place]/Iron/Folic Ac ( Plus Iron) 1 each PO DAILY [facility] Last Admin: 07/16/19 10:44 Dose: Not Given Simethicone (Simethicone) 80 mg PO Q4H PRN PRN Reason: Gas Sodium Chloride (Saline Flush) 10 ml FLUSH ASDIRECTED PRN PRN Reason: Keep Vein Open Zolpidem Tartrate (Ambien) 5 mg PO BEDTIME PRN PRN Reason: Insomnia Discontinued Medications Acetaminophen (Tylenol) 650 mg PO Q6H PRN PRN Reason: Pain Fentanyl (Sublimaze) Confirm Administered Dose 100 mcg .ROUTE .STK-MED ONE Stop: 07/15/19 15:52 Last Admin: 07/15/19 15:59 Dose: Not Given Penicillin G Potassium 5 (millunits/ Sodium Chloride) 100 mls @ 200 mls/hr IV ONETIME ONE Stop: 07/14/19 21:45 Last Admin: 07/14/19 21:42 Dose: 200 mls/hr Penicillin G Potassium 3 (millunits/ Sodium Chloride) 100 mls @ 200 mls/hr IV Q4H [facility] Last Admin: 07/15/19 02:53 Dose: Not Given Penicillin G Potassium 3 (millunits/ Sodium Chloride) 100 mls @ 200 mls/hr IV Q4H [facility] Last Admin: 07/16/19 05:15 Dose: Not Given Penicillin G Potassium (Pfizerpen) Confirm Administered Dose 5 millunits .ROUTE .STK-MED ONE Stop: 07/14/19 21:08 Last Admin: 07/14/19 21:18 Dose: Not Given Sodium Bicarbonate (Sodium Bicarbonate 4.2%) Confirm Administered Dose 2.5 meq .ROUTE .STK-MED ONE Stop: 07/15/19 15:52 Last Admin: 07/15/19 15:59 Dose: Not Given Sufentanil Citrate (Sufenta) Confirm Administered Dose 50 mcg .ROUTE .STK-MED ONE Stop: 07/15/19 15:52 Last Admin: 07/15/19 16:00 Dose: Not Given - Infant Interaction Infant Disposition, : [place] in Room with Family Infant Interaction: Holding Feeding: Bottle Fed Support Person: Significant Other - Recovery Exam Fundal Tone: Firm Fundal Level: 1 Fingerbreadths Below Umbilicus Fundal Placement: Midline Lochia Amount: Small Lochia Color: Rubra/Red Perineum Description: Intact, Minimal Bruising/Swelling Episiotomy/Laceration: None Bladder Status: Nonpalpable Urinary Elimination: Voided - Exam General: Alert, Oriented, Cooperative, No Acute Distress HEENT: Pupils Equal, Pupils Reactive, EOMI, Mucous Membr. Moist/[place] Neck: Supple Lungs: Clear to Auscultation, Normal Respiratory Effort Cardiovascular: Regular Rate, Regular Rhythm, No Murmurs GI/Abdominal Exam: Normal Bowel Sounds, Soft, Non-Tender, No Distention Extremities: Normal Inspection, Normal Range of Motion, Non-Tender, No Pedal Edema Skin: Warm, Intact Neurological: No New Focal Deficit, Normal Gait, Normal Speech Psy/Mental Status: Alert, Normal Affect, Normal Mood - Problem List Review Problem List Initiated/Reviewed/Updated: Yes - My Orders Last 24 Hours: My Active Orders 07/15/19 13:22 Methylergonovine [Methergine] 0.2 mg IM Q4H PRN 07/15/19 13:23 miSOPROStoL [Cytotec] 800 mcg RECTAL ONETIME PRN 07/15/19 13:24 Carboprost Tromethamine [Hemabate DS] 250 mcg IM Q2HR PRN 07/15/19 13:30 Oxytocin/Normal Saline [Pitocin in NS 30 UNIT/500 ML] 30 unit in 500 ml IV TITRATE 07/15/19 14:24 Patient Status [ADT] Routine Notify Provider Vital Signs OB [RC] ASDIRECTED Up ad Angelina [RC] ASDIRECTED Acetaminophen [Tylenol] 650 mg PO Q6H PRN Benzocaine/Menthol [Dermoplast Pain Relief [place]] See Dose Instructions TOP Q4H PRN Carboprost Tromethamine [Hemabate DS] 250 mcg IM ASDIRECTED PRN Docusate Sodium [Colace] 100 mg PO BID PRN Ibuprofen [Motrin] 800 mg PO Q8H PRN Oxytocin [Pitocin] 10 unit IM ONETIME PRN Simethicone 80 mg PO Q4H PRN Sodium Chloride 0.9% [Saline Flush] 10 ml FLUSH ASDIRECTED PRN Tranexamic Acid [Cyklokapron] 1,000 mg Sodium Chloride 0.9% [Normal Saline] 100 ml IV ONETIME Zolpidem [Ambien] 5 mg PO BEDTIME PRN miSOPROStoL [Cytotec] 800 mcg RECTAL ONETIME PRN Assess Lochia [WOMSER] Per Unit Routine Assess Uterine Involution [WOMSER] Per Unit Routine Breast Pump [WOMSER] Per Unit Routine Ice Therapy [OM.PC] Per Unit Routine Perineal Care [OM.PC] Per Unit Routine Saline Lock Insert [OM.PC] Urgent Sitz Bath [OM.PC] Per Unit Routine Resuscitation Status Routine 07/15/19 14:26 Vital Signs [RC] 07/15/19 15:34 Ondansetron [Zofran] 4 mg IVPUSH Q4H PRN 07/15/19 Dinner Regular Diet [DIET] 07/15/19 Lunch Regular Diet [DIET] 07/16/19 09:00 Vit with Ca/FA/Iron [ Plus Iron] 1 each PO DAILY - Assessment Assessment:: 1. PPD # 1 S/P 2. Doing well 3. Tolerating diet 4. Ambulating well. 5. Minimal lochia. - Plan Plan:: 1. Continue present care. 2. Discharge to home tomorrow. 3. PNV and Iron daily.
--- NOTE | 2019-07-17 03:58 | PCM.PNPP ---
- General Info Date of Service: 07/17/19 (PPD# 2 S/P ) Functional Status: Reports: Pain Controlled, Tolerating Diet, Ambulating, Urinating - Review of Systems General: Reports: No Symptoms HEENT: Reports: No Symptoms Pulmonary: Reports: No Symptoms Cardiovascular: Reports: No Symptoms Gastrointestinal: Reports: No Symptoms Genitourinary: Reports: No Symptoms Musculoskeletal: Reports: No Symptoms Skin: Reports: No Symptoms Neurological: Reports: No Symptoms Psychiatric: Reports: No Symptoms - General Info Date of Service: 07/17/19 (PPD # 2 S/P ) - Patient Data Vital Signs - Most Recent: Last Vital Signs Temp 98.7 F 07/16/19 19:19 Pulse 75 07/16/19 19:19 Resp 18 07/16/19 19:19 BP 124/67 07/16/19 19:19 Pulse Ox 99 07/16/19 19:19 Weight - Most Recent: 248 lb Lab Results - Last 24 Hours: Laboratory Results - last 24 hr 07/16/19 Range/Units 06:01 WBC 9.0 (5.0-10.0) 10^3/uL RBC 3.61 L (4.2-5.4) 10^6/uL Hgb 10.9 L (12.0-16.0) g/dL Hct 32.6 L (37.0-47.0) % MCV 90.3 (80-100) fL MCH 30.2 (27.0-34.0) pg MCHC 33.4 (33.0-35.0) g/dL Plt Count 181 (150-450) 10^3/uL Neut % (Auto) 60.9 (42.2-75.2) % Lymph % (Auto) 31.6 (20.5-50.1) % [place] % (Auto) 6.3 (2-8) % Eos % (Auto) 1.0 (1.0-3.0) % Baso % (Auto) 0.2 (0.0-1.0) % Med Orders - Current: Current Medications Acetaminophen (Tylenol) 650 mg PO Q6H PRN PRN Reason: mild pain or fever Benzocaine/Menthol (Dermoplast Pain Relief [place]) 0 gm TOP Q4H PRN PRN Reason: Perineal comfort measures Carboprost Tromethamine (Hemabate Ds) 250 mcg IM Q2HR PRN PRN Reason: Bleeding Carboprost Tromethamine (Hemabate Ds) 250 mcg IM ASDIRECTED PRN PRN Reason: Excessive vaginal bleeding Docusate Sodium (Colace) 100 mg PO BID PRN PRN Reason: Constipation Last Admin: 07/16/19 20:27 Dose: 100 mg Ferrous Sulfate (Ferrous Sulfate) 325 mg PO WITHBREAKFAST [facility] Last Admin: 07/16/19 08:05 Dose: 325 mg Lactated Ringer's (Ringers, Lactated) 1,000 mls @ 125 mls/hr IV ASDIRECTED [facility] Last Infusion: 07/15/19 16:30 Dose: 0 mls/hr Oxytocin/Sodium Chloride (Pitocin In Ns 30 Unit/500 Ml) 30 unit in 500 mls @ 2 mls/hr IV TITRATE [facility]; Protocol Last Titration: 07/15/19 18:15 Dose: 50 munits/min, 50 mls/hr Tranexamic Acid 1,000 mg/ (Sodium Chloride) 110 mls @ 660 mls/hr IV ONETIME PRN PRN Reason: Bleeding Ibuprofen (Motrin) 800 mg PO Q8H PRN PRN Reason: Mild Pain or Fever Last Admin: 07/16/19 20:27 Dose: 800 mg Methylergonovine Maleate (Methergine) 0.2 mg IM Q4H PRN PRN Reason: Bleeding Misoprostol (Cytotec) 800 mcg RECTAL ONETIME PRN PRN Reason: Bleeding Misoprostol (Cytotec) 800 mcg RECTAL ONETIME PRN PRN Reason: Hemorrhage Ondansetron HCl (Zofran) 4 mg IVPUSH Q4H PRN PRN Reason: Nausea/Vomiting Last Admin: 07/15/19 21:40 Dose: 4 mg Oxytocin (Pitocin) 10 unit IM ONETIME PRN PRN Reason: Bleeding Prenat Multivit/[place]/Iron/Folic Ac ( Plus Iron) 1 each PO BRK [facility] Last Admin: 07/16/19 08:05 Dose: 1 each Prenat Multivit/[place]/Iron/Folic Ac ( Plus Iron) 1 each PO DAILY [facility] Last Admin: 07/16/19 10:44 Dose: Not Given Simethicone (Simethicone) 80 mg PO Q4H PRN PRN Reason: Gas Sodium Chloride (Saline Flush) 10 ml FLUSH ASDIRECTED PRN PRN Reason: Keep Vein Open Zolpidem Tartrate (Ambien) 5 mg PO BEDTIME PRN PRN Reason: Insomnia Discontinued Medications Acetaminophen (Tylenol) 650 mg PO Q6H PRN PRN Reason: Pain Fentanyl (Sublimaze) Confirm Administered Dose 100 mcg .ROUTE .STK-MED ONE Stop: 07/15/19 15:52 Last Admin: 07/15/19 15:59 Dose: Not Given Penicillin G Potassium 5 (millunits/ Sodium Chloride) 100 mls @ 200 mls/hr IV ONETIME ONE Stop: 07/14/19 21:45 Last Admin: 07/14/19 21:42 Dose: 200 mls/hr Penicillin G Potassium 3 (millunits/ Sodium Chloride) 100 mls @ 200 mls/hr IV Q4H [facility] Last Admin: 07/15/19 02:53 Dose: Not Given Penicillin G Potassium 3 (millunits/ Sodium Chloride) 100 mls @ 200 mls/hr IV Q4H [facility] Last Admin: 07/16/19 05:15 Dose: Not Given Penicillin G Potassium (Pfizerpen) Confirm Administered Dose 5 millunits .ROUTE .STK-MED ONE Stop: 07/14/19 21:08 Last Admin: 07/14/19 21:18 Dose: Not Given Sodium Bicarbonate (Sodium Bicarbonate 4.2%) Confirm Administered Dose 2.5 meq .ROUTE .STK-MED ONE Stop: 07/15/19 15:52 Last Admin: 07/15/19 15:59 Dose: Not Given Sufentanil Citrate (Sufenta) Confirm Administered Dose 50 mcg .ROUTE .STK-MED ONE Stop: 07/15/19 15:52 Last Admin: 07/15/19 16:00 Dose: Not Given - Interaction Disposition, : [place] in Room with Family Interaction: Holding Infant Infant Feeding: Bottle Fed Infant Support Person: Significant Other - Recovery Exam Fundal Tone: Firm Fundal Level: 1 Fingerbreadths Below Umbilicus Fundal Placement: Midline Lochia Amount: Small Lochia Color: Rubra/Red Perineum Description: Intact, Minimal Bruising/Swelling Episiotomy/Laceration: None Bladder Status: Voiding Urinary Elimination: Voided - Exam General: Alert, Oriented, Cooperative, No Acute Distress HEENT: Pupils Equal, Pupils Reactive, EOMI, Mucous Membr. Moist/[place] Neck: Supple Lungs: Clear to Auscultation, Normal Respiratory Effort Cardiovascular: Regular Rate, Regular Rhythm, No Murmurs GI/Abdominal Exam: Normal Bowel Sounds, Soft, Non-Tender, No Distention Extremities: Normal Inspection, Normal Range of Motion, Non-Tender, No Pedal Edema Skin: Warm, Dry, Intact Neurological: No New Focal Deficit, Normal Gait, Normal Speech, Normal Tone Psy/Mental Status: Alert, Normal Affect, Normal Mood - Problem List Review Problem List Initiated/Reviewed/Updated: Yes - My Orders Last 24 Hours: My Active Orders 07/16/19 09:00 Vit with Ca/FA/Iron [ Plus Iron] 1 each PO DAILY - Assessment Assessment:: 1. PPD # 2 S/P 2. Doing well - Plan Plan:: 1. Discharge to home today. 2. Ibuprofen 800 mg 1 Tab TID po prn pain 3. PNV and Iron daily. 4. Follow-up with Dr. Hood at visit this week.
--- NOTE | 2019-07-17 08:43 | DISCH ---
INDICATION FOR ADMISSION: Ms. Garcia is a 19-year-old, 3, para 2-0-0- 2, female who reported to Labor and delivery at 36 and 4/7 weeks gestation who thought her water had broken, come to find out it had not and she was erin. She was 2 cm on admission and she continued to contract, so we watched her overnight. We did give her penicillin G IV for group B strep prophylaxis since we did not have that back yet. She was noted to make cervical change once she got to 4.5 cm dilated since she had received betamethasone 12 mg IM x2 doses approximately 6 weeks ago and she was over 34 weeks and in active labor, artificial rupture of membranes occurred with clear fluid noted. She tolerated her labor quite well. Once she got to 7 cm dilated, she was very uncomfortable. She was using nitrous oxide to help with discomfort, but that did not help enough, so she did get an intrathecal anesthesia. Once she got the intrathecal anesthesia, she dilated to complete and she started pushing. She then had a normal spontaneous vaginal delivery of a viable female , OA over an intact perineum. The cord was 3 vessel tightly around the neck x1. This was reduced without difficulty. After delivery of the , the placenta was then delivered by simple expression intact. The labia, vagina and cervix were inspected and intact. The baby girl weighed 7 pounds, 18-1/2 inches long with score of 8 at one minute, 9 at five minutes. She had 300 mL blood loss. Mother and infant did quite well. The went to the nursery. The patient recovered without difficulty. She tolerated the rest of her hospital stay quite well. She was afebrile. Vital signs are stable. She tolerated her diet well and ambulated quite well. She had minimal lochia. No complications occurred throughout her hospital stay. She was discharged to home on day #2. LABORATORY AND DIAGNOSTIC STUDIES: 07/14/2019; WBC 8.8, hemoglobin 11.4, hematocrit 34.0, platelet count 206,000. CMP was normal. Urinalysis was normal. Urine toxicology screen was negative. Check for rupture of membranes with AmniSure was negative. 07/16/2019, WBC 9.0, hemoglobin 10.9, hematocrit 32.6, platelet count 181,000. DISCHARGE INSTRUCTIONS: 1. Discharged to home. 2. Follow up with Dr. Askew within the next week for recheck and wellness check. 3. No douching, tampons, intercourse for 6 weeks. 4. Discharge instructions including activity, followup, medications, and diet were discussed with the patient. She understands these and is willing to comply with these. 5. Ibuprofen 800 mg 1 tablet t.i.d. p.r.n. pain. 6. vitamin and iron daily. DISCHARGE DIAGNOSES: 1. A 36 and 5/7 week intrauterine based on a 27-week ultrasound. 2. contractions and labor. 3. Minimal care. 4. Chronic anemia of . 5. Anxiety and depression. 6. Hepatitis C positive. 7. Normal spontaneous vaginal delivery of a viable female weighing 7 pounds, 18-1/2 inches long with score of 8 at one minute, 9 at five minutes. 8. Intrathecal anesthesia. [facility] /[id number]
[2019-07-17] MEDS: Ferrous Sulfate 325 MG Tab PO SCH (08:44)
[2019-07-17] MEDS: Prenatal Multivitamin with Calcium/Folic Acid/Iron Tab PO SCH ×2 (08:44→08:45)
[2019-07-17] MEDS: Ibuprofen 800 MG Tab PO PRN (08:51)
[2019-07-17 09:13] VITALS: BP 120/73; PULSE 67
[2019-07-17] MEDS ORDERED: fentaNYL 100 MCG/2 ML SDV ITHECAL ONE (13:44)
[2019-07-17] MEDS ORDERED: Sodium Bicarbonate 4.2% 2.5 MEQ/5 ML SDV ONE (13:44)
== END 2019-07-17 13:45 | disposition home or self-care (01) | DRG 806 ==
LOC: DL.OBCHECK 20:56 → DL.OB 07-15 12:03 → OBSVTOIN 07-15 16:20
PROVIDERS: ADMIT Family Medicine; ATTEND Family Medicine
PROC: 10E0XZZ Delivery of Products of Conception, External Approach (ICD-10-PCS; principal; 2019-07-15)
PROC: 3E0R3BZ Introduction of Anesthetic Agent into Spinal Canal, Percutaneous Approach (ICD-10-PCS; 2019-07-15)
PROC: 10907ZC Drainage of Amniotic Fluid, Therapeutic from Products of Conception, Via Natural or Artificial Opening (ICD-10-PCS; 2019-07-15)
DX: O69.1XX0 Labor and delivery complicated by cord around neck, with compression, not applicable or unspecified (principal); O98.413 Viral hepatitis complicating pregnancy, third trimester; Z37.0 Single live birth; D64.9 Anemia, unspecified; O99.344 Other mental disorders complicating childbirth; F41.9 Anxiety disorder, unspecified; F32.9 Major depressive disorder, single episode, unspecified; B19.20 Unspecified viral hepatitis C without hepatic coma; O99.334 Smoking (tobacco) complicating childbirth; F17.210 Nicotine dependence, cigarettes, uncomplicated; O99.02 Anemia complicating childbirth; Z3A.36 36 weeks gestation of pregnancy; Z79.899 Other long term (current) drug therapy; Z90.49 Acquired absence of other specified parts of digestive tract
CPT/HCPCS: 36415; 59025; 59409; 80053; 80305-QW; 81001; 84112; 85025; 85027; 87081; A9270-GY; J2405; J2540; J2590; J3010; J7050; J7120

== ENCOUNTER 2020-07-19 11:27 | Inpatient (IN) | payer MEDICAID ==
[2020-07-19] MEDS ORDERED: Methylergonovine 0.2 MG/1 ML Amp IM PRN (12:21)
[2020-07-19] MEDS ORDERED: Lidocaine 1% 30 ML SDV INJECT PRN (12:21)
[2020-07-19] MEDS ORDERED: Sodium Chloride 0.9% 10 ML Syringe FLUSH PRN (12:21)
[2020-07-19] MEDS ORDERED: Butorphanol 2 MG/ML SDV IVPUSH PRN ×2 (12:21)
[2020-07-19] MEDS ORDERED: fentaNYL 100 MCG/2 ML SDV SUBCUT PRN (12:21)
[2020-07-19] MEDS ORDERED: Lactated Ringers 1,000 ML IV ONE (12:21)
[2020-07-19] MEDS ORDERED: Carboprost Tromethamine 250 MCG/1 ML Amp IM PRN (12:21)
[2020-07-19] MEDS ORDERED: Ondansetron 4 MG/2 ML SDV IVPUSH PRN (12:21)
[2020-07-19] MEDS ORDERED: Tranexamic Acid 1,000 MG in Sodium Chloride 0.9% 100 ML IV PRN (12:21)
[2020-07-19] MEDS ORDERED: Misoprostol 400 MCG (4 X 100 MCG TAB) RECTAL PRN (12:21)
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
[2020-07-19] MEDS ORDERED: Nalbuphine 10 MG/1 ML Vial IV PRN (12:24)
[2020-07-19] MEDS ORDERED: Nalbuphine 10 MG/1 ML Vial IM PRN (12:24)
[2020-07-19] MEDS: Lactated Ringers 1,000 ML IV SCH ×3 (12:55→22:30)
[2020-07-19] MEDS: Oxytocin/Normal Saline 30 UNIT/500 ML BAG IV SCH (13:34)
[2020-07-19] MEDS ORDERED: fentaNYL 100 MCG/2 ML SDV ONE (22:21)
[2020-07-19] MEDS ORDERED: EPINEPHrine 1 MG/1 ML Amp ONE (22:22)
[2020-07-19] MEDS ORDERED: Sodium Bicarbonate 4.2% 2.5 MEQ/5 ML SDV ONE (22:22)
--- NOTE | 2020-07-19 22:57 | PCM.SN.2 ---
- Free Text/Narrative Note: Intrathecal. Sitting position, sterile prep and drape. 1% lidocaine w bicarb for skinwheal to L2 L3 interspace x 3. Introducer x 4, POS CSF , neg heme, neg parasthesia. 0.1 ml 1:1000 pf epi, 20 mcg pf sufenta, 30 mcg pf fentanyl. 0.04 ml pf NS and 6 mg of 0.75 % pf marcaine injected after CSF aspiration. Pt to L lateral position. Procedure time 2225 to 2300
[2020-07-20] MEDS ORDERED: Simethicone 80 MG Tab.Chew PO PRN (02:11)
[2020-07-20] MEDS ORDERED: Benzocaine/Menthol 20%-0.5% Spray 56 GM Canister TOP PRN (02:11)
[2020-07-20] MEDS ORDERED: Oxytocin 10 Units/1 ML SDV IM PRN (02:11)
--- NOTE | 2020-07-20 02:14 | PCM.DEL ---
- Patient Data Vitals - Most Recent: Last Vital Signs Temp 37.2 C 07/19/20 23:32 Pulse 67 07/20/20 00:05 Resp 16 07/20/20 00:05 BP 100/45 L 07/20/20 00:05 Pulse Ox 95 07/20/20 00:05 Weight - Most Recent: 102.965 kg Lab Results Last 24 Hours: Laboratory Results - last 24 hr 07/19/20 07/19/20 Range/Units 12:30 12:45 WBC 7.0 (5.0-10.0) 10^3/uL RBC 3.64 L (4.2-5.4) 10^6/uL Hgb 10.0 L (12.0-16.0) g/dL Hct 31.0 L (37.0-47.0) % MCV 85.2 (80-100) fL MCH 27.5 (27.0-34.0) pg MCHC 32.3 L (33.0-35.0) g/dL Plt Count 218 (150-450) 10^3/uL SARS-CoV-2 RNA (VA) Negative (NEGATIVE) Med Orders - Current: Current Medications Acetaminophen (Tylenol) 650 mg PO Q4H PRN PRN Reason: Pain (Mild 1-3) and fever Carboprost Tromethamine (Hemabate Ds) 250 mcg IM ASDIRECTED PRN PRN Reason: HEMORRHAGE Tranexamic Acid 1,000 mg/ (Sodium Chloride) 110 mls @ 660 mls/hr IV ONETIME PRN PRN Reason: Bleeding Oxytocin/Sodium Chloride (Pitocin In Ns 30 Unit/500 Ml) 30 unit in 500 mls @ 2 mls/hr IV TITRATE BRIJESH; Protocol Last Titration: 07/19/20 23:40 Dose: 22 munits/min, 22 mls/hr Documented by: Methylergonovine Maleate (Methergine) 0.2 mg IM ASDIRECTED PRN PRN Reason: Hemorrhage Misoprostol (Cytotec) 800 mcg RECTAL ASDIRECTED PRN PRN Reason: Hemorrhage Nalbuphine HCl (Nubain) 20 mg IM Q3H PRN PRN Reason: Pain Nalbuphine HCl (Nubain) 10 mg IV Q3H PRN PRN Reason: Pain Ondansetron HCl (Zofran) 4 mg IVPUSH Q4H PRN PRN Reason: Nausea/Vomiting Last Admin: 07/19/20 22:25 Dose: 4 mg Documented by: Sodium Chloride (Saline Flush) 10 ml FLUSH ASDIRECTED PRN PRN Reason: Keep Vein Open Discontinued Medications Butorphanol Tartrate (Stadol) 0.5 mg IVPUSH Q3H PRN PRN Reason: Pain Butorphanol Tartrate (Stadol) 1 mg IVPUSH Q3H PRN PRN Reason: Pain Epinephrine HCl (Adrenalin) Confirm Administered Dose 1 mg .ROUTE .STK-MED ONE Stop: 07/19/20 22:23 Fentanyl (Sublimaze) 100 mcg SUBCUT Q1H PRN PRN Reason: Pain (moderate 4-6) Fentanyl (Sublimaze) Confirm Administered Dose 100 mcg .ROUTE .STK-MED ONE Stop: 07/19/20 22:22 Lactated Ringer's (Ringers, Lactated) 1,000 mls @ 999 mls/hr IV BOLUS ONE Stop: 07/19/20 13:21 Lactated Ringer's (Ringers, Lactated) 1,000 mls @ 125 mls/hr IV ASDIRECTED BRIJESH Last Admin: 07/19/20 22:30 Dose: 125 mls/hr Documented by: Lidocaine HCl (Xylocaine-Mpf 1%) 30 ml INJECT ASDIRECTED PRN PRN Reason: Perineal Repair Sodium Bicarbonate (Sodium Bicarbonate 4.2%) Confirm Administered Dose 2.5 meq .ROUTE .STK-MED ONE Stop: 07/19/20 22:23 Sufentanil Citrate (Sufenta) Confirm Administered Dose 50 mcg .ROUTE .STK-MED ONE Stop: 07/19/20 22:23 - My Orders Last 24 Hours: My Active Orders 07/19/20 Lunch Regular Diet [DIET] 07/19/20 12:21 Patient Status [ADT] Routine Notify Provider Vital Signs OB [RC] ASDIRECTED Up ad Angelina [RC] ASDIRECTED Acetaminophen [TylenoL] 650 mg PO Q4H PRN Carboprost Tromethamine [Hemabate DS] 250 mcg IM ASDIRECTED PRN Methylergonovine [Methergine] 0.2 mg IM ASDIRECTED PRN Ondansetron [Zofran] 4 mg IVPUSH Q4H PRN Sodium Chloride 0.9% [Saline Flush] 10 ml FLUSH ASDIRECTED PRN Tranexamic Acid [Cyklokapron] 1,000 mg Sodium Chloride 0.9% [Normal Saline] 100 ml IV ONETIME miSOPROStoL [Cytotec] 800 mcg RECTAL ASDIRECTED PRN Saline Lock Insert [OM.PC] Routine Resuscitation Status Routine 07/19/20 12:24 Nitrous Oxide Delivery [RC] ASDIRECTED OB Discontinue Nitrous Oxide [RC] ASDIRECTED Nalbuphine [Nubain] 10 mg IV Q3H PRN Nalbuphine [Nubain] 20 mg IM Q3H PRN 07/19/20 12:25 Notify Provider [RC] PRN Vaginal Exam [RC] PRN 07/19/20 12:30 Oxytocin/Normal Saline [Pitocin in NS 30 UNIT/500 ML] 30 unit in 500 ml IV TITRATE 07/20/20 02:11 Vital Signs [RC] PFP Consult to Case Management/Special Police [CONS] Routine Benzocaine/Menthol [Dermoplast Pain Relief [place]] See Dose Instructions TOP Q4H PRN Docusate Sodium [Colace] 100 mg PO BID PRN Ibuprofen [Motrin] 800 mg PO Q8H PRN Oxytocin [Pitocin] 10 unit IM ONETIME PRN Simethicone 80 mg PO Q4H PRN Assess Lochia [WOMSER] Per Unit Routine Assess Uterine Involution [WOMSER] Per Unit Routine Breast Pump [WOMSER] Per Unit Routine Ice Therapy [OM.PC] Per Unit Routine Perineal Care [OM.PC] Per Unit Routine Sitz Bath [OM.PC] Per Unit Routine 07/20/20 09:00 Vit with Ca/FA/Iron [ Plus Iron] 1 each PO DAILY 07/21/20 07:00 CBC W/O DIFF,HEMOGRAM [HEME] Routine
[2020-07-20] MEDS: Lactated Ringers 1,000 ML IV SCH (02:25)
[2020-07-20] MEDS: Oxytocin/Normal Saline 30 UNIT/500 ML BAG IV SCH (03:03)
[2020-07-20] MEDS: Ibuprofen 800 MG Tab PO PRN ×3 (03:27→21:31)
[2020-07-20] MEDS: Prenatal Multivitamin with Calcium/Folic Acid/Iron Tab PO SCH (08:49)
[2020-07-20] MEDS: Acetaminophen 325 MG Tab PO PRN ×2 (08:49→19:20)
[2020-07-20] MEDS: Docusate Sodium 100 MG Cap PO PRN (19:20)
[2020-07-20] MEDS ORDERED: oxyCODONE 5 MG Tab PO ONE (22:56)
[2020-07-20] MEDS ORDERED: hydrOXYzine HCl 25 MG Tab PO ONE (22:56)
[2020-07-21] MEDS: Ibuprofen 800 MG Tab PO PRN ×3 (05:22→21:18)
[2020-07-21] MEDS: Acetaminophen 325 MG Tab PO PRN ×4 (07:58→22:19)
[2020-07-21] MEDS: Docusate Sodium 100 MG Cap PO PRN ×2 (07:59→21:17)
[2020-07-21] MEDS: Prenatal Multivitamin with Calcium/Folic Acid/Iron Tab PO SCH (08:00)
--- NOTE | 2020-07-21 08:46 | PCM.PNPP ---
- General Info Date of Service: 07/21/20 Admission Dx/Problem (Free Text): Admission Diagnosis/Problem Admission Diagnosis/Problem Subjective Update: Doing well. Exclusively bottle feeding. Is ambulating to the restroom. Had increased lower abdominal cramping last night which was managed with oxycodone, hydroxyzine, tylenol, and motrin. Current pain rated at 7/10. Left back pain has improved. Promotes intermittent chills. Denies fever, chest pain, dyspnea, vomiting, or nausea. Had a bowel movement last night. Vaginal bleeding is decreasing. Functional Status: Reports: Pain Controlled, Tolerating Diet, Ambulating, Urin ating Pain Score: 7 - Review of Systems General: Reports: Chills HEENT: Reports: No Symptoms Pulmonary: Reports: No Symptoms Cardiovascular: Reports: No Symptoms Gastrointestinal: Reports: Abdominal Pain Genitourinary: Reports: No Symptoms Musculoskeletal: Reports: Back Pain Skin: Reports: No Symptoms Neurological: Reports: No Symptoms Psychiatric: Reports: No Symptoms - General Info Date of Service: 07/21/20 - Patient Data Vital Signs - Most Recent: Last Vital Signs Temp 98.5 F 07/21/20 08:00 Pulse 98 07/21/20 08:00 Resp 16 07/21/20 08:00 BP 120/52 L 07/21/20 08:00 Pulse Ox 99 07/21/20 08:00 Weight - Most Recent: 227 lb Lab Results - Last 24 Hours: Laboratory Results - last 24 hr 07/21/20 Range/Units 05:30 WBC 9.0 (5.0-10.0) 10^3/uL RBC 3.45 L (4.2-5.4) 10^6/uL Hgb 9.5 L (12.0-16.0) g/dL Hct 29.7 L (37.0-47.0) % MCV 86.1 (80-100) fL MCH 27.5 (27.0-34.0) pg MCHC 32.0 L (33.0-35.0) g/dL Plt Count 217 (150-450) 10^3/uL Med Orders - Current: Current Medications Acetaminophen (Tylenol) 650 mg PO Q4H PRN PRN Reason: Pain (Mild 1-3) and fever Last Admin: 07/21/20 07:58 Dose: 650 mg Documented by: Benzocaine/Menthol (Dermoplast Pain Relief [place]) 0 gm TOP Q4H PRN PRN Reason: Perineal comfort measures Carboprost Tromethamine (Hemabate Ds) 250 mcg IM ASDIRECTED PRN PRN Reason: HEMORRHAGE Docusate Sodium (Colace) 100 mg PO BID PRN PRN Reason: Constipation Last Admin: 07/21/20 07:59 Dose: 100 mg Documented by: Tranexamic Acid 1,000 mg/ (Sodium Chloride) 110 mls @ 660 mls/hr IV ONETIME PRN PRN Reason: Bleeding Oxytocin/Sodium Chloride (Pitocin In Ns 30 Unit/500 Ml) 30 unit in 500 mls @ 2 mls/hr IV TITRATE BRIJESH; Protocol Last Titration: 07/20/20 05:00 Dose: 0 munits/min, 0 mls/hr Documented by: Ibuprofen (Motrin) 800 mg PO Q8H PRN PRN Reason: Cramping Last Admin: 07/21/20 05:22 Dose: 800 mg Documented by: Methylergonovine Maleate (Methergine) 0.2 mg IM ASDIRECTED PRN PRN Reason: Hemorrhage Last Admin: 07/20/20 02:08 Dose: 0.2 mg Documented by: Misoprostol (Cytotec) 800 mcg RECTAL ASDIRECTED PRN PRN Reason: Hemorrhage Nalbuphine HCl (Nubain) 20 mg IM Q3H PRN PRN Reason: Pain Nalbuphine HCl (Nubain) 10 mg IV Q3H PRN PRN Reason: Pain Ondansetron HCl (Zofran) 4 mg IVPUSH Q4H PRN PRN Reason: Nausea/Vomiting Last Admin: 07/19/20 22:25 Dose: 4 mg Documented by: Oxytocin (Pitocin) 10 unit IM ONETIME PRN PRN Reason: Bleeding Prenat Multivit/Oracle Technical [employer]/Iron/Folic Ac ( Plus Iron) 1 each PO DAILY BRIJESH Last Admin: 07/21/20 08:00 Dose: 1 each Documented by: Simethicone (Simethicone) 80 mg PO Q4H PRN PRN Reason: Gas Sodium Chloride (Saline Flush) 10 ml FLUSH ASDIRECTED PRN PRN Reason: Keep Vein Open Discontinued Medications Butorphanol Tartrate (Stadol) 0.5 mg IVPUSH Q3H PRN PRN Reason: Pain Butorphanol Tartrate (Stadol) 1 mg IVPUSH Q3H PRN PRN Reason: Pain Epinephrine HCl (Adrenalin) Confirm Administered Dose 1 mg .ROUTE .STK-MED ONE Stop: 07/19/20 22:23 Last Admin: 07/20/20 03:51 Dose: Not Given Documented by: Fentanyl (Sublimaze) 100 mcg SUBCUT Q1H PRN PRN Reason: Pain (moderate 4-6) Fentanyl (Sublimaze) Confirm Administered Dose 100 mcg .ROUTE .STK-MED ONE Stop: 07/19/20 22:22 Last Admin: 07/20/20 03:50 Dose: Not Given Documented by: Hydroxyzine HCl (Atarax) 50 mg PO ONETIME ONE Stop: 07/20/20 22:57 Last Admin: 07/20/20 23:28 Dose: 50 mg Documented by: Lactated Ringer's (Ringers, Lactated) 1,000 mls @ 999 mls/hr IV BOLUS ONE Stop: 07/19/20 13:21 Last Admin: 07/20/20 03:50 Dose: Not Given Documented by: Lactated Ringer's (Ringers, Lactated) 1,000 mls @ 125 mls/hr IV ASDIRECTED BRIJESH Last Admin: 07/20/20 02:25 Dose: 125 mls/hr Documented by: Lidocaine HCl (Xylocaine-Mpf 1%) 30 ml INJECT ASDIRECTED PRN PRN Reason: Perineal Repair Oxycodone HCl (Oxycodone) 5 mg PO ONETIME ONE Stop: 07/20/20 22:57 Last Admin: 07/20/20 23:28 Dose: 5 mg Documented by: Sodium Bicarbonate (Sodium Bicarbonate 4.2%) Confirm Administered Dose 2.5 meq .ROUTE .STK-MED ONE Stop: 07/19/20 22:23 Last Admin: 07/20/20 03:51 Dose: Not Given Documented by: Sufentanil Citrate (Sufenta) Confirm Administered Dose 50 mcg .ROUTE .STK-MED ONE Stop: 07/19/20 22:23 Last Admin: 07/20/20 03:51 Dose: Not Given Documented by: - Infant Interaction Infant Disposition, : to Nursery Infant Feeding: Bottle Fed Infant - Recovery Exam Fundal Tone: Firm Fundal Level: At Umbilicus Fundal Placement: Midline Lochia Amount: Moderate Lochia Color: Rubra/Red Bladder Status: Nonpalpable, Voiding Urinary Elimination: Voided - Exam General: Alert, Oriented HEENT: Pupils Equal, Pupils Reactive, EOMI, Mucous Membr. 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
[2020-07-21] MEDS ORDERED: hydrOXYzine HCl 25 MG Tab PO ONE (22:24)
[2020-07-22] MEDS: Acetaminophen 325 MG Tab PO PRN ×3 (02:25→14:15)
[2020-07-22] MEDS: Ibuprofen 800 MG Tab PO PRN ×2 (05:24→14:14)
--- NOTE | 2020-07-22 07:40 | PCM.PNPP ---
- General Info Date of Service: 07/22/20 Subjective Update: Doing well. Exclusively bottle feeding. Is ambulating to the restroom. Abdominal and back pain is improved. Denies fever, chills, chest pain, dyspnea, vomiting, or nausea. Having bowel movements. Vaginal bleeding is decreasing. Upon discharge plans to return to cousin's house. Functional Status: Reports: Pain Controlled, Tolerating Diet, Ambulating - Review of Systems General: Reports: No Symptoms HEENT: Reports: No Symptoms Pulmonary: Reports: No Symptoms Cardiovascular: Reports: No Symptoms Gastrointestinal: Reports: No Symptoms Genitourinary: Reports: No Symptoms Musculoskeletal: Reports: No Symptoms Skin: Reports: No Symptoms Neurological: Reports: No Symptoms Psychiatric: Reports: No Symptoms - General Info Date of Service: 07/22/20 - Patient Data Vital Signs - Most Recent: Last Vital Signs Temp 97.1 F 07/21/20 19:50 Pulse 83 07/21/20 19:50 Resp 16 07/21/20 19:50 BP 134/61 07/21/20 19:50 Pulse Ox 99 07/21/20 08:00 Weight - Most Recent: 227 lb Med Orders - Current: Current Medications Acetaminophen (Tylenol) 650 mg PO Q4H PRN PRN Reason: Pain (Mild 1-3) and fever Last Admin: 07/22/20 02:25 Dose: 650 mg Documented by: Benzocaine/Menthol (Dermoplast Pain Relief [place]) 0 gm TOP Q4H PRN PRN Reason: Perineal comfort measures Carboprost Tromethamine (Hemabate Ds) 250 mcg IM ASDIRECTED PRN PRN Reason: HEMORRHAGE Docusate Sodium (Colace) 100 mg PO BID PRN PRN Reason: Constipation Last Admin: 07/21/20 21:17 Dose: 100 mg Documented by: Tranexamic Acid 1,000 mg/ (Sodium Chloride) 110 mls @ 660 mls/hr IV ONETIME PRN PRN Reason: Bleeding Oxytocin/Sodium Chloride (Pitocin In Ns 30 Unit/500 Ml) 30 unit in 500 mls @ 2 mls/hr IV TITRATE BRIJESH; Protocol Last Titration: 07/20/20 05:00 Dose: 0 munits/min, 0 mls/hr Documented by: Ibuprofen (Motrin) 800 mg PO Q8H PRN PRN Reason: Cramping Last Admin: 07/22/20 05:24 Dose: 800 mg Documented by: Methylergonovine Maleate (Methergine) 0.2 mg IM ASDIRECTED PRN PRN Reason: Hemorrhage Last Admin: 07/20/20 02:08 Dose: 0.2 mg Documented by: Misoprostol (Cytotec) 800 mcg RECTAL ASDIRECTED PRN PRN Reason: Hemorrhage Nalbuphine HCl (Nubain) 20 mg IM Q3H PRN PRN Reason: Pain Nalbuphine HCl (Nubain) 10 mg IV Q3H PRN PRN Reason: Pain Ondansetron HCl (Zofran) 4 mg IVPUSH Q4H PRN PRN Reason: Nausea/Vomiting Last Admin: 07/19/20 22:25 Dose: 4 mg Documented by: Oxytocin (Pitocin) 10 unit IM ONETIME PRN PRN Reason: Bleeding Prenat Multivit/Administrative Manager/Iron/Folic Ac ( Plus Iron) 1 each PO DAILY BRIJESH Last Admin: 07/21/20 08:00 Dose: 1 each Documented by: Simethicone (Simethicone) 80 mg PO Q4H PRN PRN Reason: Gas Sodium Chloride (Saline Flush) 10 ml FLUSH ASDIRECTED PRN PRN Reason: Keep Vein Open Discontinued Medications Butorphanol Tartrate (Stadol) 0.5 mg IVPUSH Q3H PRN PRN Reason: Pain Butorphanol Tartrate (Stadol) 1 mg IVPUSH Q3H PRN PRN Reason: Pain Epinephrine HCl (Adrenalin) Confirm Administered Dose 1 mg .ROUTE .STK-MED ONE Stop: 07/19/20 22:23 Last Admin: 07/20/20 03:51 Dose: Not Given Documented by: Fentanyl (Sublimaze) 100 mcg SUBCUT Q1H PRN PRN Reason: Pain (moderate 4-6) Fentanyl (Sublimaze) Confirm Administered Dose 100 mcg .ROUTE .STK-MED ONE Stop: 07/19/20 22:22 Last Admin: 07/20/20 03:50 Dose: Not Given Documented by: Hydroxyzine HCl (Atarax) 50 mg PO ONETIME ONE Stop: 07/20/20 22:57 Last Admin: 07/20/20 23:28 Dose: 50 mg Documented by: Hydroxyzine HCl (Atarax) 50 mg PO ONETIME ONE Stop: 07/21/20 22:25 Last Admin: 07/21/20 22:43 Dose: 50 mg Documented by: Lactated Ringer's (Ringers, Lactated) 1,000 mls @ 999 mls/hr IV BOLUS ONE Stop: 07/19/20 13:21 Last Admin: 07/20/20 03:50 Dose: Not Given Documented by: Lactated Ringer's (Ringers, Lactated) 1,000 mls @ 125 mls/hr IV ASDIRECTED BRIJESH Last Admin: 07/20/20 02:25 Dose: 125 mls/hr Documented by: Lidocaine HCl (Xylocaine-Mpf 1%) 30 ml INJECT ASDIRECTED PRN PRN Reason: Perineal Repair Oxycodone HCl (Oxycodone) 5 mg PO ONETIME ONE Stop: 07/20/20 22:57 Last Admin: 07/20/20 23:28 Dose: 5 mg Documented by: Sodium Bicarbonate (Sodium Bicarbonate 4.2%) Confirm Administered Dose 2.5 meq .ROUTE .STK-MED ONE Stop: 07/19/20 22:23 Last Admin: 07/20/20 03:51 Dose: Not Given Documented by: Sufentanil Citrate (Sufenta) Confirm Administered Dose 50 mcg .ROUTE .STK-MED ONE Stop: 07/19/20 22:23 Last Admin: 07/20/20 03:51 Dose: Not Given Documented by: - Infant Interaction Infant Disposition, : [place] to Nursery Feeding: Bottle Fed Infant - Recovery Exam Fundal Tone: Firm Fundal Level: 1 Fingerbreadths Below Umbilicus Fundal Placement: Midline Lochia Amount: Small Lochia Color: Rubra/Red Perineum Description: Intact, Minimal Bruising/Swelling Episiotomy/Laceration: None Bladder Status: Nonpalpable, Voiding Urinary Elimination: Voided - Exam General: Alert, Oriented HEENT: Pupils Equal, Pupils Reactive, EOMI Neck: Supple Lungs: Clear to Auscultation, Normal Respiratory Effort Cardiovascular: Regular Rate, Regular Rhythm GI/Abdominal Exam: Normal Bowel Sounds, Soft, Non-Tender, No Organomegaly Extremities: Normal Inspection, Normal Range of Motion, Non-Tender Skin: Warm, Dry, Intact Neurological: No New Focal Deficit Psy/Mental Status: Alert, Normal Affect, Normal Mood - Problem List Review Problem List Initiated/Reviewed/Updated: Yes - Assessment Assessment:: , delivered at 41w0d by U/S at 39w6d Late care 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
[2020-07-22 09:03] VITALS: BP 109/51; PULSE 85
[2020-07-22] MEDS: Prenatal Multivitamin with Calcium/Folic Acid/Iron Tab PO SCH (10:00)
[2020-07-22] MEDS: Docusate Sodium 100 MG Cap PO PRN (10:00)
--- NOTE | 2020-07-22 15:55 | PCM.DCSUM1 ---
Discharge Summary - Discharge Data Discharge Disposition: Home, Self-Care 01 Condition: Good - Referral to Home Health Primary Care Physician: Alton Bourne MD - Patient Summary/Data Consults: Consultations 07/20/20 02:11 Consult to Case Management/Social Work Job Titles [CONS] Routine - Patient Instructions Diet: Usual Diet as Tolerated Activity: As Tolerated, No Lifting Over 20 Pounds Driving: May Drive Today Showering/Bathing: May Shower Notify Provider of: Fever, Increased Pain, Swelling and Redness - Discharge Plan *PRESCRIPTION DRUG MONITORING PROGRAM REVIEWED*: Not Applicable *COPY OF PRESCRIPTION DRUG MONITORING REPORT IN PATIENT NAVIN: Not Applicable Home Medications: Home Meds Acetaminophen [Tylenol] 650 mg PO Q4H PRN tablet 07/22/20 [Rx] Docusate Sodium [Colace] 100 mg PO BID PRN cap 07/22/20 [Rx] Ibuprofen [Motrin] 800 mg PO Q8H PRN tablet 07/22/20 [Rx] Vit with Ca/FA/Iron [ Plus Iron] 1 each PO DAILY tablet 07/22/20 [Rx] Patient Handouts: Care After Vaginal Delivery - Patient Data Vitals - Most Recent: Last Vital Signs Temp 36.3 C 07/22/20 08:00 Pulse 85 07/22/20 08:00 Resp 16 07/22/20 08:00 BP 109/51 L 07/22/20 08:00 Pulse Ox 99 07/22/20 08:00 Weight - Most Recent: 102.965 kg I&O - Last 24 hours: Intake & Output 07/22/20 07/22/20 07/22/20 06:59 14:59 22:59 Intake Total 960 Balance 960 Med Orders - Current: Current Medications Acetaminophen (Tylenol) 650 mg PO Q4H PRN PRN Reason: Pain (Mild 1-3) and fever Last Admin: 07/22/20 14:15 Dose: 650 mg Documented by: Benzocaine/Menthol (Dermoplast Pain Relief [place]) 0 gm TOP Q4H PRN PRN Reason: Perineal comfort measures Carboprost Tromethamine (Hemabate Ds) 250 mcg IM ASDIRECTED PRN PRN Reason: HEMORRHAGE Docusate Sodium (Colace) 100 mg PO BID PRN PRN Reason: Constipation Last Admin: 07/22/20 10:00 Dose: 100 mg Documented by: Tranexamic Acid 1,000 mg/ (Sodium Chloride) 110 mls @ 660 mls/hr IV ONETIME PRN PRN Reason: Bleeding Oxytocin/Sodium Chloride (Pitocin In Ns 30 Unit/500 Ml) 30 unit in 500 mls @ 2 mls/hr IV TITRATE BRIJESH; Protocol Last Titration: 07/20/20 05:00 Dose: 0 munits/min, 0 mls/hr Documented by: Ibuprofen (Motrin) 800 mg PO Q8H PRN PRN Reason: Cramping Last Admin: 07/22/20 14:14 Dose: 800 mg Documented by: Methylergonovine Maleate (Methergine) 0.2 mg IM ASDIRECTED PRN PRN Reason: Hemorrhage Last Admin: 07/20/20 02:08 Dose: 0.2 mg Documented by: Misoprostol (Cytotec) 800 mcg RECTAL ASDIRECTED PRN PRN Reason: Hemorrhage Nalbuphine HCl (Nubain) 20 mg IM Q3H PRN PRN Reason: Pain Nalbuphine HCl (Nubain) 10 mg IV Q3H PRN PRN Reason: Pain Ondansetron HCl (Zofran) 4 mg IVPUSH Q4H PRN PRN Reason: Nausea/Vomiting Last Admin: 07/19/20 22:25 Dose: 4 mg Documented by: Oxytocin (Pitocin) 10 unit IM ONETIME PRN PRN Reason: Bleeding Prenat Multivit/[place]/Iron/Folic Ac ( Plus Iron) 1 each PO DAILY [facility] Last Admin: 07/22/20 10:00 Dose: 1 each Documented by: Simethicone (Simethicone) 80 mg PO Q4H PRN PRN Reason: Gas Sodium Chloride (Saline Flush) 10 ml FLUSH ASDIRECTED PRN PRN Reason: Keep Vein Open Discontinued Medications Butorphanol Tartrate (Stadol) 0.5 mg IVPUSH Q3H PRN PRN Reason: Pain Butorphanol Tartrate (Stadol) 1 mg IVPUSH Q3H PRN PRN Reason: Pain Epinephrine HCl (Adrenalin) Confirm Administered Dose 1 mg .ROUTE .STK-MED ONE Stop: 07/19/20 22:23 Last Admin: 07/20/20 03:51 Dose: Not Given Documented by: Fentanyl (Sublimaze) 100 mcg SUBCUT Q1H PRN PRN Reason: Pain (moderate 4-6) Fentanyl (Sublimaze) Confirm Administered Dose 100 mcg .ROUTE .STK-MED ONE Stop: 07/19/20 22:22 Last Admin: 07/20/20 03:50 Dose: Not Given Documented by: Hydroxyzine HCl (Atarax) 50 mg PO ONETIME ONE Stop: 07/20/20 22:57 Last Admin: 07/20/20 23:28 Dose: 50 mg Documented by: Hydroxyzine HCl (Atarax) 50 mg PO ONETIME ONE Stop: 07/21/20 22:25 Last Admin: 07/21/20 22:43 Dose: 50 mg Documented by: Lactated Ringer's (Ringers, Lactated) 1,000 mls @ 999 mls/hr IV BOLUS ONE Stop: 07/19/20 13:21 Last Admin: 07/20/20 03:50 Dose: Not Given Documented by: Lactated Ringer's (Ringers, Lactated) 1,000 mls @ 125 mls/hr IV ASDIRECTED BRIJESH Last Admin: 07/20/20 02:25 Dose: 125 mls/hr Documented by: Lidocaine HCl (Xylocaine-Mpf 1%) 30 ml INJECT ASDIRECTED PRN PRN Reason: Perineal Repair Oxycodone HCl (Oxycodone) 5 mg PO ONETIME ONE Stop: 07/20/20 22:57 Last Admin: 07/20/20 23:28 Dose: 5 mg Documented by: Sodium Bicarbonate (Sodium Bicarbonate 4.2%) Confirm Administered Dose 2.5 meq .ROUTE .STK-MED ONE Stop: 07/19/20 22:23 Last Admin: 07/20/20 03:51 Dose: Not Given Documented by: Sufentanil Citrate (Sufenta) Confirm Administered Dose 50 mcg .ROUTE .STK-MED ONE Stop: 07/19/20 22:23 Last Admin: 07/20/20 03:51 Dose: Not Given Documented by:
[2020-07-22] MEDS ORDERED: Sodium Bicarbonate 4.2% 2.5 MEQ/5 ML SDV ONE (16:07)
[2020-07-22] MEDS ORDERED: fentaNYL 100 MCG/2 ML SDV ITHECAL ONE (16:07)
[2020-07-22] MEDS ORDERED: EPINEPHrine 1 MG/1 ML Amp ONE (16:07)
[2020-07-22] MEDS ORDERED: Sodium Chloride 0.9% 20 ML SDV ONE (16:07)
== END 2020-07-22 16:08 | disposition home or self-care (01) | DRG 807 ==
LOC: DL.OBCHECK 11:27 → DL.OB 17:04 → OBSVTOIN 07-20 01:49
PROVIDERS: ADMIT Family Medicine; ATTEND Family Medicine
PROC: 10E0XZZ Delivery of Products of Conception, External Approach (ICD-10-PCS; principal; 2020-07-20)
DX: O48.0 Post-term pregnancy (principal); Z37.0 Single live birth; Z3A.41 41 weeks gestation of pregnancy; O99.02 Anemia complicating childbirth; D64.9 Anemia, unspecified; O99.214 Obesity complicating childbirth; E66.9 Obesity, unspecified; Z79.899 Other long term (current) drug therapy
CPT/HCPCS: 01967; 36415; 51701; 59409; 85027; A9270-GY; J0171; J2210; J2405; J2590; J3010; J7120; U0002

== ENCOUNTER 2021-07-10 00:25 | Observation (INO) | payer MEDICAID ==
[2021-07-10] MEDS ORDERED: Docusate Sodium 100 MG Cap PO PRN (02:29)
[2021-07-10] MEDS ORDERED: Calcium Carbonate 500 MG Tab.Chew PO PRN (02:29)
[2021-07-10] MEDS ORDERED: Zolpidem 5 MG Tab PO PRN (02:42)
[2021-07-10] MEDS: Acetaminophen 325 MG Tab PO PRN ×3 (02:55→23:18)
[2021-07-10] MEDS ORDERED: metroNIDAZOLE 250 MG Tab PO ONE (03:40)
[2021-07-10 03:45] LABS: AMPHETAMINES,URINE POSITIVE (NEGATIVE); BARBITURATES,URINE NEGATIVE (NEGATIVE); BENZODIAZEPINE,URINE NEGATIVE (NEGATIVE); MDMA (ECSTASY), URINE POSITIVE (NEGATIVE); METHADONE,URINE NEGATIVE (NEGATIVE); METHAMPHETAMINES,URINE POSITIVE (NEGATIVE); OPIATES,URINE NEGATIVE (NEGATIVE); OXYCODONE,URINE NEGATIVE (NEGATIVE); PHENCYCLIDINE,URINE NEGATIVE (NEGATIVE); TCA,URINE NEGATIVE (NEGATIVE)
[2021-07-10] MEDS: Piperacillin/Tazobactam 3.375 GM in Sodium Chloride 0.9% 100 ML IV SCH ×4 (03:50→23:12)
[2021-07-10] MEDS ORDERED: Sodium Chloride 0.9% 250 ML ONE (04:08)
[2021-07-10] MEDS ORDERED: Vancomycin 1 GM SDV ONE (04:08)
[2021-07-10] MEDS: diphenhydrAMINE 50 MG/ML SDV IVPUSH PRN ×2 (05:49→16:20)
[2021-07-10] MEDS: Acetaminophen/HYDROcodone 325-5 MG Tab PO PRN ×2 (11:00→16:16)
[2021-07-10] MEDS ORDERED: VANCOMYCIN IV ONE ×3 (18:00)
[2021-07-10] MEDS ORDERED: SODIUM CHLORIDE 0.9% IV ONE ×3 (18:00)
[2021-07-10] MEDS ORDERED: FLUoxetine 10 MG Cap PO SCH (21:00)
[2021-07-10] MEDS: Ferrous Sulfate 325 MG Tab PO SCH (23:12)
[2021-07-10] MEDS: Ascorbic Acid 500 MG Tab PO SCH (23:12)
[2021-07-11] MEDS: Piperacillin/Tazobactam 3.375 GM in Sodium Chloride 0.9% 100 ML IV SCH ×2 (04:34→09:03)
[2021-07-11] MEDS: Acetaminophen/HYDROcodone 325-5 MG Tab PO PRN (04:55)
[2021-07-11] MEDS: diphenhydrAMINE 50 MG/ML SDV IVPUSH PRN (05:55)
[2021-07-11] MEDS ORDERED: VANCOMYCIN IV SCH ×3 (06:00)
[2021-07-11] MEDS ORDERED: SODIUM CHLORIDE 0.9% IV SCH ×3 (06:00)
[2021-07-11] MEDS: Ferrous Sulfate 325 MG Tab PO SCH (08:18)
[2021-07-11] MEDS: Ascorbic Acid 500 MG Tab PO SCH (08:18)
[2021-07-11 10:07] LABS: ANION GAP 13.6 mEq/L (7-13); CHLORIDE,CL 105 mmol/L (98-107); SODIUM,NA 137 mmol/L (136-145)
[2021-07-11] MEDS ORDERED: Lactated Ringers 1,000 ML IV SCH (11:15)
[2021-07-11 11:46] LABS: C.TRACHOMATIS BY TMA Negative (Negative); N.GONORRHOEAE BY TMA Negative (Negative)
[2021-07-11 12:32] VITALS: BP 110/55; PULSE 77
== END 2021-07-11 11:40 ==
LOC: UNDOADMOB 00:25 → UNDOADMIN 00:25 → DL.OB 00:25 → EDSTATUS 00:35 → DL.OB 02:30 → EEVIPCON 02:30 → DL.MS 17:38
PROVIDERS: ADMIT Family Medicine; ATTEND Family Medicine
DX: O99.891 Other specified diseases and conditions complicating pregnancy (principal); O99.713 Diseases of the skin and subcutaneous tissue complicating pregnancy, third trimester; R10.31 Right lower quadrant pain; L03.113 Cellulitis of right upper limb; F32.A Depression, unspecified; Z98.890 Other specified postprocedural states; Z91.02 Food additives allergy status; Z3A.35 35 weeks gestation of pregnancy
CPT/HCPCS: 36415; 59025; 76805; 80048; 80305; 81001; 82565; 82947; 85025; 85027; 86850; 86900; 86901; 87040; 87077; 87081; 87086; 87186; 87210; 87389; 87491; 87522; 87591; 87635; 96365; 96366; 96367; 96375; 96376; A9270; G0378; J1200; J2543; J3370; J7050; J7120; U0002

== ENCOUNTER 2021-08-02 14:59 | Inpatient (IN) | payer MEDICAID ==
[2021-08-02] MEDS: Lactated Ringers 1,000 ML IV SCH ×3 (15:30→18:07)
[2021-08-02] MEDS: Vancomycin 1 GM SDV ONE (15:50)
[2021-08-02] MEDS ORDERED: Ondansetron 4 MG/2 ML SDV IVPUSH PRN (15:52)
[2021-08-02] MEDS ORDERED: fentaNYL 100 MCG/2 ML SDV IVPUSH PRN (15:52)
[2021-08-02] MEDS ORDERED: Methylergonovine 0.2 MG/1 ML Amp IM PRN (15:52)
[2021-08-02] MEDS ORDERED: Misoprostol 400 MCG (4 X 100 MCG TAB) RECTAL PRN (15:52)
[2021-08-02] MEDS ORDERED: Sodium Chloride 0.9% 10 ML Syringe FLUSH PRN (15:52)
[2021-08-02] MEDS ORDERED: Carboprost Tromethamine 250 MCG/1 ML Amp IM PRN (15:52)
[2021-08-02] MEDS ORDERED: Acetaminophen 325 MG Tab PO PRN ×2 (15:52→18:51)
[2021-08-02] MEDS ORDERED: Tranexamic Acid 1,000 MG in Sodium Chloride 0.9% 100 ML IV PRN (15:52)
[2021-08-02] MEDS ORDERED: Lactated Ringers 1,000 ML IV ONE (15:52)
[2021-08-02] MEDS ORDERED: Lidocaine 1% 30 ML SDV INJECT PRN (15:52)
[2021-08-02 16:07] LABS: AMPHETAMINES,URINE POSITIVE (NEGATIVE); BARBITURATES,URINE NEGATIVE (NEGATIVE); BENZODIAZEPINE,URINE NEGATIVE (NEGATIVE); MDMA (ECSTASY), URINE NEGATIVE (NEGATIVE); METHADONE,URINE NEGATIVE (NEGATIVE); METHAMPHETAMINES,URINE POSITIVE (NEGATIVE); OPIATES,URINE NEGATIVE (NEGATIVE); OXYCODONE,URINE NEGATIVE (NEGATIVE); PHENCYCLIDINE,URINE NEGATIVE (NEGATIVE); TCA,URINE NEGATIVE (NEGATIVE)
[2021-08-02] MEDS ORDERED: fentaNYL 100 MCG/2 ML SDV ONE (16:10)
[2021-08-02] MEDS ORDERED: EPINEPHrine 1 MG/ML SDV ONE ×2 (16:11)
[2021-08-02] MEDS ORDERED: Sodium Chloride 0.9% 20 ML SDV IV ONE (16:11)
[2021-08-02] MEDS ORDERED: Sodium Bicarbonate 4.2% 2.5 MEQ/5 ML SDV ONE ×2 (16:11)
[2021-08-02] MEDS ORDERED: fentaNYL 100 MCG/2 ML SDV ITHECAL ONE (16:11)
[2021-08-02] MEDS: Oxytocin/Normal Saline 30 UNIT/500 ML BAG IV SCH ×2 (18:00→20:05)
[2021-08-02] MEDS ORDERED: Oxytocin 10 Units/1 ML SDV IM PRN (18:51)
[2021-08-02] MEDS ORDERED: Simethicone 80 MG Tab.Chew PO PRN (18:51)
[2021-08-02] MEDS ORDERED: Benzocaine/Menthol 20%-0.5% Spray 78 GM Cannister TOP PRN (18:51)
[2021-08-03] MEDS: Ibuprofen 800 MG Tab PO PRN ×3 (00:18→18:18)
[2021-08-03] MEDS: Vancomycin 1 GM SDV ONE (00:36)
[2021-08-03] MEDS: Docusate Sodium 100 MG Cap PO PRN (11:16)
[2021-08-03] MEDS: Prenatal Multivitamin with Calcium/Folic Acid/Iron Tab PO SCH (11:16)
[2021-08-04] MEDS: Ibuprofen 800 MG Tab PO PRN ×2 (01:55→16:06)
[2021-08-04] MEDS: Docusate Sodium 100 MG Cap PO PRN (08:21)
[2021-08-04] MEDS: Prenatal Multivitamin with Calcium/Folic Acid/Iron Tab PO SCH (08:21)
[2021-08-04 08:34] VITALS: BP 115/64; PULSE 75
== END 2021-08-04 19:20 | disposition home or self-care (01) | DRG 807 ==
LOC: DL.OBCHECK 14:59 → DL.OB 15:45
PROVIDERS: ADMIT Family Medicine; ATTEND Family Medicine
PROC: 10E0XZZ Delivery of Products of Conception, External Approach (ICD-10-PCS; principal; 2021-08-02)
PROC: 10907ZC Drainage of Amniotic Fluid, Therapeutic from Products of Conception, Via Natural or Artificial Opening (ICD-10-PCS; 2021-08-02)
PROC: 3E0R3BZ Introduction of Anesthetic Agent into Spinal Canal, Percutaneous Approach (ICD-10-PCS; 2021-08-02)
PROC: 00HU33Z Insertion of Infusion Device into Spinal Canal, Percutaneous Approach (ICD-10-PCS; 2021-08-02)
DX: O99.214 Obesity complicating childbirth (principal); Z37.0 Single live birth; O99.02 Anemia complicating childbirth; D64.9 Anemia, unspecified; O99.334 Smoking (tobacco) complicating childbirth; F17.200 Nicotine dependence, unspecified, uncomplicated; O99.824 Streptococcus B carrier state complicating childbirth; O99.324 Drug use complicating childbirth; F15.90 Other stimulant use, unspecified, uncomplicated; Z3A.38 38 weeks gestation of pregnancy; Z90.49 Acquired absence of other specified parts of digestive tract; Z88.0 Allergy status to penicillin; Z86.16 Personal history of COVID-19
CPT/HCPCS: 01967; 36415; 51701; 59409; 80305-QW; 85027; 86592; A9270-GY; J0171; J2210; J2405; J2590; J3010; J3370; J7050; J7120

== ENCOUNTER 2022-05-24 03:08 | Emergency (ER) | payer MEDICAID ==
[2022-05-24 04:03] VITALS: BP 129/78; PULSE 112
== END 2022-05-24 04:01 | disposition left against medical advice (07) ==
LOC: DL.ED 03:08
DX: F10.120 Alcohol abuse with intoxication, uncomplicated (principal); T76.21XA Adult sexual abuse, suspected, initial encounter; E66.9 Obesity, unspecified; Z68.30 Body mass index [BMI] 30.0-30.9, adult; Z88.0 Allergy status to penicillin
CPT/HCPCS: 99284

== ENCOUNTER 2023-02-27 20:25 | Emergency (ER) | payer MEDICAID | END 2023-02-27 20:27 | disposition left against medical advice (07) | LOC: DL.ED 20:25 | DX: Z53.21 Procedure and treatment not carried out due to patient leaving prior to being seen by health care provider (principal) ==

== ENCOUNTER 2024-05-20 02:47 | Emergency (ER) | payer MEDICAID, OTHER ==
[2024-05-20] MEDS ORDERED: HYDROmorphone 1 MG/ML Syringe ONE ×3 (03:01→03:20)
[2024-05-20] MEDS ORDERED: ceFAZolin 1 GM Vial ONE (03:04)
[2024-05-20] MEDS ORDERED: HYDROmorphone 1 MG/ML Syringe IVPUSH ONE ×3 (03:04→03:22)
[2024-05-20] MEDS ORDERED: HYDROmorphone 2 MG/ML Syringe IV ONE ×3 (03:04→03:22)
[2024-05-20] MEDS ORDERED: Diphtheria,Pertussis(Acell),Tetanus Vaccine 0.5 ML Syringe ONE (03:07)
[2024-05-20] MEDS ORDERED: Lactated Ringers 1,000 ML IV ONE (03:32)
[2024-05-20] MEDS ORDERED: Sodium Chloride 0.9% 10 ML Syringe FLUSH PRN (03:32)
[2024-05-20] MEDS: Iopamidol 612 MG/ML 100 ML Bottle IVPUSH ONE ×2 (03:40→17:44)
[2024-05-20 03:43] LABS: HEMATOCRIT 38.4 % (37.0-47.0); HEMOGLOBIN 12.3 g/dL (12.0-16.0); MEAN CORPUSCULAR HEMOGLOBIN 27.9 pg (27.0-34.0); MEAN CORPUSCULAR VOLUME 87.1 fL (80-100); PLATELET COUNT,PLT 287 10^3/uL (150-450); RED BLOOD CELL COUNT 4.41 10^6/uL (4.2-5.4); WHITE BLOOD CELL COUNT,WBC 24.9 10^3/uL (5.0-10.0)
[2024-05-20 03:46] LABS: BASOPHILS PERCENT AUTO 0.2 % (0.0-1.0); EOSINOPHILS PERCENT AUTO 0.4 % (1.0-3.0); LYMPHOCYTES PERCENT AUTO 19.6 % (20.5-50.1); NEUTROPHILS PERCENT AUTO 76.8 % (42.2-75.2)
[2024-05-20 03:48] LABS: HCG QUALITATIVE,SERUM NEGATIVE (NEGATIVE)
[2024-05-20 03:53] LABS: ALANINE AMINOTRANSFERASE,ALT 67 U/L (14-59); ALBUMIN 3.6 g/dL (3.4-5.0); ALKALINE PHOSPHATASE 105 U/L (46-116); ANION GAP 21.4 mEq/L (7-13); ASPARTATE AMNIOTRANSFERASE,AST 99 U/L (15-37); BILIRUBIN TOTAL 0.3 mg/dL (0.2-1.0); BLOOD UREA NITROGEN,BUN 20 mg/dL (7-18); BUN/CREATININE RATIO 25.6 (No establ ref range); CARBON DIOXIDE,CO2 18 mmol/L (21-32); CHLORIDE,CL 108 mmol/L (98-107); CREATININE 0.78 mg/dL (0.55-1.02); ETHANOL BLOOD MEDICAL 194 mg/dL (0); GLUCOSE RANDOM 152 mg/dL (70-99); POTASSIUM,K 3.4 mmol/L (3.5-5.1); PROTEIN TOTAL,TP 7.3 g/dL (6.4-8.2); SODIUM,NA 144 mmol/L (136-145)
[2024-05-20 04:00] LABS: ESTIMATED GFR 107 mL/min (>=60)
[2024-05-20 04:08] LABS: BAND PERCENT MAN 3 %; LYMPHOCYTES PERCENT MAN 17 % (20-50); MONOCYTES PERCENT MAN 7 % (2-8); SEG NEUTROPHILS PERCENT MAN 73 % (42-75)
[2024-05-20] MEDS ORDERED: fentaNYL 100 MCG/2 ML SDV ONE ×2 (04:15→04:34)
[2024-05-20] MEDS ORDERED: fentaNYL 100 MCG/2 ML SDV IVPUSH ONE ×3 (04:16→04:39)
[2024-05-20] MEDS ORDERED: fentaNYL 100 MCG/2 ML SDV IV ONE ×2 (04:18→04:39)
[2024-05-20] MEDS ORDERED: ceFAZolin 1 GM in Sodium Chloride 0.9% 10 ML IV ONE (04:39)
[2024-05-20] MEDS ORDERED: ceFAZolin 1 GM Vial IVPUSH ONE (06:16)
== END 2024-05-20 09:05 ==
LOC: DL.ED 03:52
DX: S22.22XA Fracture of body of sternum, initial encounter for closed fracture (principal); S22.060A Wedge compression fracture of T7-T8 vertebra, initial encounter for closed fracture; S82.832C Other fracture of upper and lower end of left fibula, initial encounter for open fracture type IIIA, IIIB, or IIIC; S82.831C Other fracture of upper and lower end of right fibula, initial encounter for open fracture type IIIA, IIIB, or IIIC; S71.111A Laceration without foreign body, right thigh, initial encounter; T68.XXXA Hypothermia, initial encounter; S20.411A Abrasion of right back wall of thorax, initial encounter; F10.120 Alcohol abuse with intoxication, uncomplicated; Z90.49 Acquired absence of other specified parts of digestive tract; E66.9 Obesity, unspecified; Z79.899 Other long term (current) drug therapy; Y90.6 Blood alcohol level of 120-199 mg/100 ml
CPT/HCPCS: 29125; 36415; 70450; 71045; 71260; 72125; 73600; 73700; 74177; 80053; 80307; 84703; 85025; 86850; 86900; 86901; 99285; J0690; J1171; J3010; Q9967; 29515; J3490

== ENCOUNTER 2024-09-29 21:12 | Emergency (ER) | payer MEDICAID, OTHER ==
[2024-09-29] MEDS: Ketorolac 30 MG/ML SDV IVPUSH ONE (21:28)
[2024-09-29 21:33] LABS: BASOPHILS PERCENT AUTO 0.7 % (0.0-1.0); EOSINOPHILS PERCENT AUTO 3.8 % (1.0-3.0); HEMATOCRIT 36.8 % (37.0-47.0); LYMPHOCYTES PERCENT AUTO 24.8 % (20.5-50.1); MEAN CORPUSCULAR HEMOGLOBIN 27.1 pg (27.0-34.0); MEAN CORPUSCULAR HGB CONC 32.6 g/dL (33.0-35.0); MEAN CORPUSCULAR VOLUME 83.1 fL (80-100); MONOCYTES PERCENT AUTO 7.7 % (2-8); PLATELET COUNT,PLT 411 10^3/uL (150-450); RED BLOOD CELL COUNT 4.43 10^6/uL (4.2-5.4)
[2024-09-29 22:02] LABS: ALANINE AMINOTRANSFERASE,ALT 22 U/L (14-59); ALBUMIN 3.3 g/dL (3.4-5.0); ALKALINE PHOSPHATASE 188 U/L (46-116); ANION GAP 11.4 mEq/L (7-13); ASPARTATE AMNIOTRANSFERASE,AST 11 U/L (15-37); BILIRUBIN TOTAL 0.3 mg/dL (0.2-1.0); BLOOD UREA NITROGEN,BUN 9 mg/dL (7-18); BUN/CREATININE RATIO 13.8 (No establ ref range); C-REACTIVE PROTEIN 2.01 ng/dL (<=0.50); CALCIUM 8.4 mg/dL (8.5-10.1); CARBON DIOXIDE,CO2 28 mmol/L (21-32); CHLORIDE,CL 105 mmol/L (98-107); CREATININE 0.65 mg/dL (0.55-1.02); EST CRCL DRUG DOSING (CG) 132.31 mL/min; GLUCOSE RANDOM 101 mg/dL (70-99); POTASSIUM,K 3.4 mmol/L (3.5-5.1); PROTEIN TOTAL,TP 7.7 g/dL (6.4-8.2); SODIUM,NA 141 mmol/L (136-145)
[2024-09-29 22:05] LABS: A/G RATIO 0.75; ESTIMATED GFR 124 mL/min (>=60)
[2024-09-29 22:12] LABS: HCG QUALITATIVE,SERUM NEGATIVE (NEGATIVE)
[2024-09-29] MEDS: Take Home: Cephalexin 500 MG Cap, 6 Cap Pack PO ONE (22:58)
[2024-09-29 23:12] LABS: SEDIMENTATION RATE MANUAL 23 mm/hr (0-20)
[2024-09-30 05:59] VITALS: BP 128/62; PULSE 68
== END 2024-09-30 05:56 | disposition home or self-care (01) ==
LOC: DL.ED 21:12
DX: L03.115 Cellulitis of right lower limb (principal); S82.292K Other fracture of shaft of left tibia, subsequent encounter for closed fracture with nonunion; E66.9 Obesity, unspecified; Z88.0 Allergy status to penicillin; Z79.899 Other long term (current) drug therapy; Z90.49 Acquired absence of other specified parts of digestive tract; X58.XXXA Exposure to other specified factors, initial encounter
CPT/HCPCS: 36415; 73610; 80053; 84703; 85025; 85651; 86140; 96374; 99284; A9270; J1885

== ENCOUNTER 2024-10-14 19:55 | Emergency (ER) | payer MEDICAID, OTHER ==
[2024-10-14 20:14] VITALS: BP 127/65
[2024-10-14] MEDS: Acetaminophen/HYDROcodone 325-5 MG Tab PO ONE (20:29)
[2024-10-14 20:41] LABS: BASOPHILS PERCENT AUTO 0.5 % (0.0-1.0); EOSINOPHILS PERCENT AUTO 1.5 % (1.0-3.0); HEMATOCRIT 37.4 % (37.0-47.0); HEMOGLOBIN 12.5 g/dL (12.0-16.0); LYMPHOCYTES PERCENT AUTO 12.3 % (20.5-50.1); MEAN CORPUSCULAR HEMOGLOBIN 28.5 pg (27.0-34.0); MEAN CORPUSCULAR HGB CONC 33.4 g/dL (33.0-35.0); MEAN CORPUSCULAR VOLUME 85.4 fL (80-100); MONOCYTES PERCENT AUTO 6.1 % (2-8); NEUTROPHILS PERCENT AUTO 79.6 % (42.2-75.2); PLATELET COUNT,PLT 537 10^3/uL (150-450); RED BLOOD CELL COUNT 4.38 10^6/uL (4.2-5.4); WHITE BLOOD CELL COUNT,WBC 9.7 10^3/uL (5.0-10.0)
[2024-10-14 20:50] VITALS: PULSE 68
[2024-10-14 21:00] LABS: A/G RATIO 0.7; ALANINE AMINOTRANSFERASE,ALT 19 U/L (14-59); ALBUMIN 3.4 g/dL (3.4-5.0); ALKALINE PHOSPHATASE 177 U/L (46-116); ASPARTATE AMNIOTRANSFERASE,AST 9 U/L (15-37); BILIRUBIN TOTAL 0.3 mg/dL (0.2-1.0); BLOOD UREA NITROGEN,BUN 17 mg/dL (7-18); BUN/CREATININE RATIO 22.1 (No establ ref range); C-REACTIVE PROTEIN 3.39 ng/dL (<=0.50); CALCIUM 9.2 mg/dL (8.5-10.1); CARBON DIOXIDE,CO2 26 mmol/L (21-32); CHLORIDE,CL 104 mmol/L (98-107); CREATININE 0.77 mg/dL (0.55-1.02); GLUCOSE RANDOM 96 mg/dL (70-99); PROTEIN TOTAL,TP 8.4 g/dL (6.4-8.2); SODIUM,NA 138 mmol/L (136-145)
[2024-10-14 21:14] LABS: ESTIMATED GFR 109 mL/min (>=60)
[2024-10-14] MEDS: Ibuprofen 600 MG Tab PO ONE (21:34)
[2024-10-14] MEDS: Clindamycin in 0.9 % Sod Chlor 900 MG in Premix Bag 1 BAG IV ONE (21:34)
[2024-10-14] MEDS: Take Home: Clindamycin HCl 150 MG, 12 Cap Pack PO ONE (21:43)
== END 2024-10-14 22:16 | disposition home or self-care (01) ==
LOC: DL.ED 19:55
DX: L02.415 Cutaneous abscess of right lower limb (principal); E66.9 Obesity, unspecified; Z88.1 Allergy status to other antibiotic agents; Z79.899 Other long term (current) drug therapy; Z90.49 Acquired absence of other specified parts of digestive tract
CPT/HCPCS: 36415; 73610; 80053; 83605; 85025; 85651; 86140; 87040; 87070; 87077; 87186; 87205; 96365; 99284; A9270; J0737; 99283

== ENCOUNTER 2024-11-24 15:14 | Emergency (ER) | payer MEDICAID ==
[2024-11-24] MEDS ORDERED: Sodium Chloride 0.9% 10 ML Syringe FLUSH PRN (15:34)
[2024-11-24] MEDS: Ketorolac 30 MG/ML SDV IVPUSH ONE (15:50)
[2024-11-24 15:56] LABS: BASOPHILS PERCENT AUTO 0.4 % (0.0-1.0); EOSINOPHILS PERCENT AUTO 1.4 % (1.0-3.0); LYMPHOCYTES PERCENT AUTO 20.8 % (20.5-50.1); MEAN CORPUSCULAR HEMOGLOBIN 25.6 pg (27.0-34.0); MEAN CORPUSCULAR HGB CONC 31.4 g/dL (33.0-35.0); MEAN CORPUSCULAR VOLUME 81.6 fL (80-100); MONOCYTES PERCENT AUTO 5.2 % (2-8); NEUTROPHILS PERCENT AUTO 72.2 % (42.2-75.2); PLATELET COUNT,PLT 427 10^3/uL (150-450); RED BLOOD CELL COUNT 4.29 10^6/uL (4.2-5.4); WHITE BLOOD CELL COUNT,WBC 8.4 10^3/uL (5.0-10.0)
[2024-11-24 16:19] LABS: ALANINE AMINOTRANSFERASE,ALT 35 U/L (14-59); ALBUMIN 3.2 g/dL (3.4-5.0); ALKALINE PHOSPHATASE 158 U/L (46-116); ANION GAP 13.1 mEq/L (7-13); ASPARTATE AMNIOTRANSFERASE,AST 13 U/L (15-37); BILIRUBIN TOTAL 0.3 mg/dL (0.2-1.0); BLOOD UREA NITROGEN,BUN 11 mg/dL (7-18); BUN/CREATININE RATIO 16.2 (No establ ref range); C-REACTIVE PROTEIN 1.56 ng/dL (<=0.50); CALCIUM 8.7 mg/dL (8.5-10.1); CARBON DIOXIDE,CO2 27 mmol/L (21-32); CHLORIDE,CL 107 mmol/L (98-107); CREATININE 0.68 mg/dL (0.55-1.02); EST CRCL DRUG DOSING (CG) 126.47 mL/min; GLUCOSE RANDOM 99 mg/dL (70-99); LACTIC ACID 0.9 mmol/L (0.4-2.0); POTASSIUM,K 4.1 mmol/L (3.5-5.1); PROTEIN TOTAL,TP 7.9 g/dL (6.4-8.2); SODIUM,NA 143 mmol/L (136-145)
[2024-11-24 16:22] LABS: A/G RATIO 0.68; ESTIMATED GFR 123 mL/min (>=60)
[2024-11-24 16:35] LABS: INR 0.9 (0.9-1.2); PROTHROMBIN TIME 9.7 SEC (9.0-12.0); PTT,PARTIAL THROMBOPLSTIN TIME 23.4 SEC (22.0-34.0)
[2024-11-24 16:47] LABS: AMPHETAMINES,URINE NEGATIVE (NEGATIVE); BARBITURATES,URINE NEGATIVE (NEGATIVE); BENZODIAZEPINE,URINE NEGATIVE (NEGATIVE); MDMA (ECSTASY), URINE NEGATIVE (NEGATIVE); METHADONE,URINE NEGATIVE (NEGATIVE); METHAMPHETAMINES,URINE NEGATIVE (NEGATIVE); OPIATES,URINE NEGATIVE (NEGATIVE); OXYCODONE,URINE NEGATIVE (NEGATIVE); PHENCYCLIDINE,URINE NEGATIVE (NEGATIVE); TCA,URINE NEGATIVE (NEGATIVE)
[2024-11-24] MEDS: Iopamidol 612 MG/ML 100 ML Bottle IVPUSH ONE (17:02)
[2024-11-24] MEDS ORDERED: Iopamidol 755 Mg/ML 100 ML Bottle IVPUSH ONE (17:10)
[2024-11-24 19:42] VITALS: BP 115/79; PULSE 73
[2024-11-24] MEDS: Sulfamethoxazole/Trimethoprim 800-160 MG Tab PO ONE (19:42)
== END 2024-11-24 19:53 | disposition home or self-care (01) ==
LOC: DL.ED 15:14
DX: S82.83 Other fracture of upper and lower end of fibula (principal); E66.9 Obesity, unspecified; Z88.1 Allergy status to other antibiotic agents; Z90.49 Acquired absence of other specified parts of digestive tract; Z68.36 Body mass index [BMI] 36.0-36.9, adult; X58.XXXA Exposure to other specified factors, initial encounter
CPT/HCPCS: 36415; 71045; 71275; 73700; 80053; 80305; 81025; 83605; 84484; 85025; 85379; 85610; 85730; 86140; 87040; 87070; 87077; 87186; 93010; 96374; 99284; A9270; J1885; Q9967

== ENCOUNTER 2025-02-15 10:08 | Inpatient (IN) | payer MEDICAID ==
[2025-02-15] MEDS ORDERED: Ondansetron 4 MG Tab.DIS PO PRN (16:09)
[2025-02-15 16:55] LABS: BASOPHILS PERCENT AUTO 0.6 % (0.0-1.0); EOSINOPHILS PERCENT AUTO 7.2 % (1.0-3.0); LYMPHOCYTES PERCENT AUTO 27.4 % (20.5-50.1); MONOCYTES PERCENT AUTO 8.2 % (2-8); NEUTROPHILS PERCENT AUTO 56.6 % (42.2-75.2); PLATELET COUNT,PLT 358 10^3/uL (150-450); RED BLOOD CELL COUNT 4.01 10^6/uL (4.2-5.4); WHITE BLOOD CELL COUNT,WBC 6.2 10^3/uL (5.0-10.0)
[2025-02-15 17:15] LABS: INR 0.9 (0.9-1.2); PTT,PARTIAL THROMBOPLSTIN TIME 23.0 SEC (22.0-34.0)
[2025-02-15 17:18] LABS: ALANINE AMINOTRANSFERASE,ALT 21.0 U/L (14-59); ASPARTATE AMNIOTRANSFERASE,AST 13.0 U/L (15-37); BILIRUBIN TOTAL 0.2 mg/dL (0.2-1.0); BLOOD UREA NITROGEN,BUN 16.0 mg/dL (7-18); CARBON DIOXIDE,CO2 27.0 mmol/L (21-32); CHLORIDE,CL 102.0 mmol/L (98-107); CREATININE 0.57 mg/dL (0.55-1.02); EST CRCL DRUG DOSING (CG) 149.55 mL/min; GLUCOSE RANDOM 101.0 mg/dL (70-99); POTASSIUM,K 4.4 mmol/L (3.5-5.1); PROTEIN TOTAL,TP 7.4 g/dL (6.4-8.2); SODIUM,NA 137.0 mmol/L (136-145)
[2025-02-15 17:21] LABS: A/G RATIO 0.72; ESTIMATED GFR 128.0 mL/min (>=60)
[2025-02-15 19:47] LABS: FOLIC ACID 10.0 ng/mL (8.6-58.9)
[2025-02-15 19:52] LABS: IRON,FE 44.0 ug/dL (50-170); PERCENT FE SATURATION 10.7 % (20.0-50.0)
[2025-02-16 08:42] LABS: PLATELET COUNT,PLT 376 10^3/uL (150-450); RED BLOOD CELL COUNT 4.32 10^6/uL (4.2-5.4); WHITE BLOOD CELL COUNT,WBC 5.1 10^3/uL (5.0-10.0)
[2025-02-16 09:16] LABS: EOSINOPHILS PERCENT MAN 6 % (1-3); LYMPHOCYTES PERCENT MAN 31 % (20-50); MONOCYTES PERCENT MAN 8 % (2-8); SEG NEUTROPHILS PERCENT MAN 55 % (42-75)
[2025-02-16] MEDS: Aspirin 325 MG Tab.EC PO SCH (11:00)
[2025-02-16] MEDS: Prenatal Multivitamin with Calcium/Folic Acid/Iron Tab PO SCH (11:00)
[2025-02-16] MEDS: Sennosides/Docusate Sodium 50-8.6 MG Tab PO SCH (22:14)
[2025-02-18 10:08] LABS: AMPHETAMINES,URINE NEGATIVE (NEGATIVE); BARBITURATES,URINE NEGATIVE (NEGATIVE); MDMA (ECSTASY), URINE NEGATIVE (NEGATIVE); METHAMPHETAMINES,URINE NEGATIVE (NEGATIVE); OPIATES,URINE NEGATIVE (NEGATIVE); OXYCODONE,URINE POSITIVE (NEGATIVE); PHENCYCLIDINE,URINE NEGATIVE (NEGATIVE); TCA,URINE POSITIVE (NEGATIVE)
[2025-02-19 06:43] LABS: BASOPHILS PERCENT AUTO 0.4 % (0.0-1.0); EOSINOPHILS PERCENT AUTO 5.4 % (1.0-3.0); LYMPHOCYTES PERCENT AUTO 30.1 % (20.5-50.1); MONOCYTES PERCENT AUTO 8.1 % (2-8); NEUTROPHILS PERCENT AUTO 56.0 % (42.2-75.2); PLATELET COUNT,PLT 337 10^3/uL (150-450); RED BLOOD CELL COUNT 3.91 10^6/uL (4.2-5.4); WHITE BLOOD CELL COUNT,WBC 5.6 10^3/uL (5.0-10.0)
[2025-02-19 07:02] LABS: ALANINE AMINOTRANSFERASE,ALT 20.0 U/L (14-59); ASPARTATE AMNIOTRANSFERASE,AST 12.0 U/L (15-37); BILIRUBIN TOTAL 0.2 mg/dL (0.2-1.0); BLOOD UREA NITROGEN,BUN 13.0 mg/dL (7-18); CARBON DIOXIDE,CO2 29.0 mmol/L (21-32); CHLORIDE,CL 107.0 mmol/L (98-107); CREATININE 0.64 mg/dL (0.55-1.02); EST CRCL DRUG DOSING (CG) 133.19 mL/min; GLUCOSE RANDOM 102.0 mg/dL (70-99); POTASSIUM,K 4.3 mmol/L (3.5-5.1); PROTEIN TOTAL,TP 7.1 g/dL (6.4-8.2); SODIUM,NA 142.0 mmol/L (136-145)
[2025-02-19 07:04] LABS: A/G RATIO 0.78; ESTIMATED GFR 124.0 mL/min (>=60)
[2025-02-20] MEDS: Sodium Chloride 0.9% 10 ML Syringe FLUSH PRN (01:08)
[2025-02-21 06:40] LABS: BASOPHILS PERCENT AUTO 0.8 % (0.0-1.0); EOSINOPHILS PERCENT AUTO 5.1 % (1.0-3.0); LYMPHOCYTES PERCENT AUTO 30.6 % (20.5-50.1); MONOCYTES PERCENT AUTO 8.1 % (2-8); NEUTROPHILS PERCENT AUTO 55.4 % (42.2-75.2); PLATELET COUNT,PLT 317 10^3/uL (150-450); RED BLOOD CELL COUNT 3.88 10^6/uL (4.2-5.4); WHITE BLOOD CELL COUNT,WBC 5.9 10^3/uL (5.0-10.0)
[2025-02-21 07:09] LABS: ALANINE AMINOTRANSFERASE,ALT 16 U/L (14-59); ASPARTATE AMNIOTRANSFERASE,AST 11 U/L (15-37); BILIRUBIN TOTAL 0.1 mg/dL (0.2-1.0); BLOOD UREA NITROGEN,BUN 16 mg/dL (7-18); CARBON DIOXIDE,CO2 26 mmol/L (21-32); CHLORIDE,CL 108 mmol/L (98-107); CREATININE 0.54 mg/dL (0.55-1.02); EST CRCL DRUG DOSING (CG) 157.86 mL/min; GLUCOSE RANDOM 101 mg/dL (70-99); POTASSIUM,K 4.2 mmol/L (3.5-5.1); PROTEIN TOTAL,TP 7.0 g/dL (6.4-8.2); SODIUM,NA 142 mmol/L (136-145)
[2025-02-21 07:12] LABS: A/G RATIO 0.79; ESTIMATED GFR 129 mL/min (>=60)
[2025-02-21 07:21] LABS: SEDIMENTATION RATE MANUAL 20 mm/hr (0-20)
[2025-02-21] MEDS ORDERED: Sodium Chloride 0.9% 10 ML Syringe FLUSH PRN (21:36)
[2025-02-22] MEDS: Sodium Chloride 0.9% 10 ML Syringe FLUSH SCH (09:00)
[2025-02-26 06:39] LABS: BASOPHILS PERCENT AUTO 1.6 % (0.0-1.0); EOSINOPHILS PERCENT AUTO 8.0 % (1.0-3.0); LYMPHOCYTES PERCENT AUTO 36.1 % (20.5-50.1); MONOCYTES PERCENT AUTO 8.0 % (2-8); NEUTROPHILS PERCENT AUTO 46.3 % (42.2-75.2); PLATELET COUNT,PLT 312 10^3/uL (150-450); RED BLOOD CELL COUNT 4.01 10^6/uL (4.2-5.4); WHITE BLOOD CELL COUNT,WBC 5.1 10^3/uL (5.0-10.0)
[2025-02-26 07:10] LABS: ALANINE AMINOTRANSFERASE,ALT 19 U/L (14-59); ASPARTATE AMNIOTRANSFERASE,AST 12 U/L (15-37); BILIRUBIN TOTAL 0.2 mg/dL (0.2-1.0); BLOOD UREA NITROGEN,BUN 17 mg/dL (7-18); CARBON DIOXIDE,CO2 24 mmol/L (21-32); CHLORIDE,CL 106 mmol/L (98-107); CREATININE 0.61 mg/dL (0.55-1.02); EST CRCL DRUG DOSING (CG) 139.74 mL/min; GLUCOSE RANDOM 98 mg/dL (70-99); POTASSIUM,K 4.4 mmol/L (3.5-5.1); PROTEIN TOTAL,TP 6.9 g/dL (6.4-8.2); SODIUM,NA 139 mmol/L (136-145)
[2025-02-26 07:18] LABS: A/G RATIO 0.82; ESTIMATED GFR 126 mL/min (>=60)
[2025-02-26 07:24] LABS: SEDIMENTATION RATE MANUAL 16 mm/hr (0-20)
[2025-02-28 09:15] LABS: BASOPHILS PERCENT AUTO 0.6 % (0.0-1.0); EOSINOPHILS PERCENT AUTO 6.1 % (1.0-3.0); LYMPHOCYTES PERCENT AUTO 32.8 % (20.5-50.1); MONOCYTES PERCENT AUTO 7.7 % (2-8); NEUTROPHILS PERCENT AUTO 52.8 % (42.2-75.2); PLATELET COUNT,PLT 319 10^3/uL (150-450); RED BLOOD CELL COUNT 3.94 10^6/uL (4.2-5.4); WHITE BLOOD CELL COUNT,WBC 5.5 10^3/uL (5.0-10.0)
[2025-02-28 09:32] LABS: ALANINE AMINOTRANSFERASE,ALT 19 U/L (14-59); ASPARTATE AMNIOTRANSFERASE,AST 11 U/L (15-37); BILIRUBIN TOTAL 0.2 mg/dL (0.2-1.0); BLOOD UREA NITROGEN,BUN 19 mg/dL (7-18); CARBON DIOXIDE,CO2 25 mmol/L (21-32); CHLORIDE,CL 106 mmol/L (98-107); CREATINE KINASE,CK 36 U/L (16-191); CREATININE 0.65 mg/dL (0.55-1.02); EST CRCL DRUG DOSING (CG) 131.14 mL/min; GLUCOSE RANDOM 116 mg/dL (70-99); POTASSIUM,K 4.1 mmol/L (3.5-5.1); PROTEIN TOTAL,TP 6.9 g/dL (6.4-8.2); SODIUM,NA 140 mmol/L (136-145)
[2025-02-28 09:37] LABS: A/G RATIO 0.86; ESTIMATED GFR 124 mL/min (>=60)
[2025-02-28 09:45] LABS: SEDIMENTATION RATE MANUAL 14 mm/hr (0-20)
[2025-02-28 12:55] LABS: B-TYPE NATRIURETIC PEPTIDE,BNP 88 pg/ml (0-100)
[2025-03-08] MEDS: GI Cocktail Oral Solution 30 ML PO ONE (17:57)
[2025-03-09 06:41] LABS: PLATELET COUNT,PLT 249.0 10^3/uL (150-450); RED BLOOD CELL COUNT 3.9 10^6/uL (4.2-5.4); WHITE BLOOD CELL COUNT,WBC 4.7 10^3/uL (5.0-10.0)
[2025-03-09 07:12] LABS: A/G RATIO 1.0; ALANINE AMINOTRANSFERASE,ALT 14 U/L (14-59); ASPARTATE AMNIOTRANSFERASE,AST 8 U/L (15-37); BILIRUBIN TOTAL 0.3 mg/dL (0.2-1.0); BLOOD UREA NITROGEN,BUN 18 mg/dL (7-18); CARBON DIOXIDE,CO2 26 mmol/L (21-32); CHLORIDE,CL 108 mmol/L (98-107); CREATINE KINASE,CK 39 U/L (16-191); CREATININE 0.60 mg/dL (0.55-1.02); EST CRCL DRUG DOSING (CG) 142.07 mL/min; GLUCOSE RANDOM 97 mg/dL (70-99); POTASSIUM,K 4.4 mmol/L (3.5-5.1); PROTEIN TOTAL,TP 7.1 g/dL (6.4-8.2); SODIUM,NA 143 mmol/L (136-145)
[2025-03-09 07:16] VITALS: BP 119/74; PULSE 56
[2025-03-09 07:20] LABS: ESTIMATED GFR 126 mL/min (>=60)
[2025-03-09 07:46] LABS: SEDIMENTATION RATE MANUAL 9.0 mm/hr (0-20)
== END 2025-03-09 12:28 | disposition home or self-care (01) | DRG 948 ==
LOC: DL.MS 15:19
PROVIDERS: ADMIT Student in an Organized Health Care Education/Training Program; ATTEND Internal Medicine
DX: R53.1 Weakness (principal); M86.9 Osteomyelitis, unspecified; E66.9 Obesity, unspecified; E88.09 Other disorders of plasma-protein metabolism, not elsewhere classified; D64.9 Anemia, unspecified; Z98.890 Other specified postprocedural states; Z88.0 Allergy status to penicillin; Z79.899 Other long term (current) drug therapy; Z79.82 Long term (current) use of aspirin; Z68.37 Body mass index [BMI] 37.0-37.9, adult; Z90.49 Acquired absence of other specified parts of digestive tract
CPT/HCPCS: 36415; 71045; 71046; 73060-RT; 80053; 80305-QW; 81025; 82550; 82607; 82728; 82746; 83540; 83550; 83735; 83880; 84484; 85007; 85025; 85027; 85610; 85651; 85730; 86140; 93005; 97161-GP; 97165-GO; 99305; 99309; 99316; A9270-GY; J0692